=== PATIENT | male | born 1940 | race Caucasian/White ===

== ENCOUNTER 2016-07-08 09:36 | Observation (INO) | payer MEDICARE ==
[2016-07-08] MEDS ORDERED: methylPREDNISolone 125 MG* 2 ML VIAL IV ONE (10:06)
[2016-07-08 10:18] LABS: Hematocrit 33 % (42-52); Hemoglobin 10.4 g/dl (14.0-18.0); Mean Corpuscular HGB Conc 32 g/dl (31-36); Mean Corpuscular Hemoglobin 28 pg (27-31); Mean Corpuscular Volume 87 fL (80-94); Mean Platelet Volume 8 um3 (7.4-10.4); Red Blood Count 3.77 10^6/ul (4.0-5.4); Red Cell Distribution Width 17 % (10.5-15)
[2016-07-08] MEDS: Albuterol/Ipratropium NEB.SOL* Albuterol 2.5 MG/Ipratropium 0.5 MG 3 ML INH ONE ×2 (10:21→11:39)
[2016-07-08 10:38] LABS: Urine Bilirubin Negative (Negative); Urine Glucose Negative (Negative); Urine Nitrite Negative (Negative)
[2016-07-08 10:38] LABS: Albumin 3.5 g/dL (3.2-5.2); BUN/Creatinine Ratio 14.7 (8-20); Calcium 8.6 mg/dL (8.6-10.3); EGFR African American 99.9 (>60); EGFR Non-African American 77.7 (>60); Globulin 3.2 g/dL (2-4); Potassium 3.6 mmol/L (3.5-5.0); Total Bilirubin 0.6 mg/dL (0.2-1.0); Total Protein 6.7 g/dL (6.4-8.9)
[2016-07-08 10:39] LABS: Troponin I 0.01 ng/mL (<0.04)
--- NOTE | 2016-07-08 11:12 | RAD ---
INDICATION: Short of breath. Wheezing. Pneumonia. CHF. COMPARISON: March 07, 2016 TECHNIQUE: PA and lateral dual-energy views were obtained. FINDINGS: Bones/Soft Tissues: There are no acute bony findings. There is sternotomy/CABG Cardiomediastinal: The cardiomediastinal silhouette is unchanged. There is a presumed prominent right pericardial fat pad. The cardiac silhouette is mildly prominent. There is no interstitial edema on today's examination. Lungs: There are no infiltrates. There are several tiny calcified granulomas. There is mild hyperinflation. Pleura: There are no significant pleural effusions. Other: None IMPRESSION: POSTOPERATIVE CHANGE. NO ACTIVE DISEASE.
[2016-07-08] MEDS ORDERED: Furosemide IV* 10 MG/ML VIAL (40 MG) IV SLOW PU ONE (11:31)
[2016-07-08] MEDS ORDERED: Albuterol/Ipratropium NEB.SOL* Albuterol 2.5 MG/Ipratropium 0.5 MG 3 ML ONE (11:37)
[2016-07-08] MEDS ORDERED: Acetaminophen TAB* 325 MG PO PRN (11:39)
[2016-07-08] MEDS ORDERED: Ondansetron INJ* 2 MG/ML VIAL IV PRN (11:39)
--- NOTE | 2016-07-08 11:53 | ED ---
Sha Venegas Adam, scribed for Keshav Villalta MD on 07/08/16 at 1100 . Shortness of Breath - HPI Summary HPI Summary: Patient is a 75 y/o male who presents to [facility] with SOB since 4 days ago. SOB is exacerbated by exertion, but worsened this morning. He also reports some dizziness since 3 weeks. He confirms mild coughing and wheezing, but denies chest pain, fever, chills, nausea, rhinorrhea, or congestion. His notes he had mild edema in the lower extremities yesterday. He states he has recently had decreased urine and low blood counts. He is on blood thinners including ASA. He confirms receiving a flu shot this past year. Pt has a PMHx of CHF and regularly sleeps on 2 pillows. He is on 2 liters of Oxygen at home only at night. Pt also has COPD and Type 2 DM. PSHx of CABG x 3 twenty years ago. SHx: He is a former smoker, but denies drinking. He also denies any FHx of CAD, but notes father had CA and mother had emphysema. - History of Current Complaint Chief Complaint: EDShortnessOfBreath Time Seen by Provider: 07/08/16 09:52 Hx Obtained From: Patient, Family/Orientor - Onset/Duration: Gradual Onset, Lasting Days Current Severity: Moderate Dyspnea At: Exertion Aggrevating Factors: Movement - Ambulation. Alleviating Factors: Nothing Associated Signs & Symptoms: Cough (Nonproductive), Wheezing, Dizzy, Edema - Allergy/Home Medications Allergies/Adverse Reactions: Allergies Allergy/AdvReac Type Severity Reaction Status Date / Time No Known Allergies Allergy Verified 02/23/16 09:35 PMH/Surg Hx/FS Hx/Imm Hx Endocrine/Hematology History: Reports: Hx Diabetes Cardiovascular History: Reports: Hx Hypertension, Other Cardiovascular Problems/ Disorders - CARDIAC BYPASS [place] Denies: Hx Pacemaker/ICD Respiratory History: Reports: Hx Asthma, Hx Chronic Obstructive Pulmonary Disease (COPD) Comment Only: Other Respiratory Problems/Disorders - LIMITED HX DUE TO PT MEMORY Musculoskeletal History: Reports: Hx Arthritis Sensory History: Reports: Hx Cataracts - HAD SURGERY, Hx Contacts or Glasses - FOR READING Denies: Hx Hearing Aid - VERY HARD OF HEARING Opthamlomology History: Reports: Hx Cataracts - HAD SURGERY, Hx Contacts or Glasses - FOR READING Neurological History: Reports: Hx Dementia - Surgical History Surgery Procedure, Year, and Place: CATARACT SURGERY TO BOTH EYES WITH LENS IMPLANTS - [place]. CARDIAC BYPASS - [place]. APPENDECTOMY Hx Anesthesia Reactions: No Infectious Disease History: Yes Infectious Disease History: Denies: Traveled Outside the [place] in Last 30 Days - Family History Known Family History: Positive: Respiratory Disease - Mother had emphysema. , Other - Father had cancer. Negative: Cardiac Disease Family History: No FHx anesthesia reaction - Social History Occupation: Retired Lives: With Family - . Alcohol Use: None Substance Use Type: Reports: None Hx Tobacco Use: Yes Smoking Status (MU): Former Smoker Review of Systems Negative: Fever, Chills Negative: Nasal Discharge Negative: Chest Pain Positive: Shortness Of Breath, Cough - Mild. Mild wheezing, as well. Negative: Nausea Positive: Edema - Lower extremities. All Other Systems Reviewed And Are Negative: Yes Physical Exam - Summary Physical Exam Summary: The patient is well-nourished in no acute distress and in no acute pain. The skin is warm and dry and skin color reflects adequate perfusion. Good skin turgor. HEENT: The head is normocephalic and atraumatic. The pupils are equal and reactive. The conjunctivae are clear and without drainage. Nares are patent and without drainage. Mouth reveals dry mucous membranes. The external ears are intact. The ear canals are patent and without drainage. The tympanic membranes are intact. Neck is supple with full range of motion and non-tender. There are no carotid bruits. There is no neck vein distension. Respiratory: No reproducible tenderness on chest wall. Decreased breath sounds throughout. Rales in left base. No wheezing or rhonchi. Cardiovascular: Hear is regular rate and rhythm. There is no murmur or rub auscultated. Pitting edema lower extremities and ankles. Pulses are symmetrical and equal. Abdomen: The abdomen is soft and non-tender. Musculoskeletal: Less than 2 second capillary refill. Neurological: Patient is alert and oriented to person, place and time. Psychiatric: The patient has an appropriate affect and does not exhibit any anxiety or depression. Triage Information Reviewed: Yes Vital Signs On Initial Exam: Initial Vitals Temp Pulse Resp BP Pulse Ox 97.4 F 80 17 143/83 100 07/08/16 09:37 07/08/16 09:37 07/08/16 09:37 07/08/16 09:37 07/08/16 09:37 Vital Signs Reviewed: Yes Diagnostics - Vital Signs Vital Signs Temp Pulse Resp BP Pulse Ox 07/08/16 09:37 97.4 F 80 17 143/83 100 - Laboratory Lab Results: Lab Results 07/08/16 07/08/16 07/08/16 Range/Units 10:00 10:00 10:00 WBC 8.0 (3.5-10.8) 10^3/ul RBC 3.77 L (4.0-5.4) 10^6/ul Hgb 10.4 L (14.0-18.0) g/dl Hct 33 L (42-52) % MCV 87 (80-94) fL MCH 28 (27-31) pg MCHC 32 (31-36) g/dl RDW 17 H (10.5-15) % Plt Count 206 (150-450) 10^3/ul MPV 8 (7.4-10.4) um3 Neut % (Auto) 69.0 (38-83) % Lymph % (Auto) 20.6 L (25-47) % [place] % (Auto) 8.1 (1-9) % Eos % (Auto) 1.6 (0-6) % Baso % (Auto) 0.7 (0-2) % Absolute Neuts (auto) 5.6 (1.5-7.7) 10^3/ul Absolute Lymphs (auto) 1.7 (1.0-4.8) 10^3/ul Absolute Monos (auto) 0.6 (0-0.8) 10^3/ul Absolute Eos (auto) 0.1 (0-0.6) 10^3/ul Absolute Basos (auto) 0.1 (0-0.2) 10^3/ul Absolute Nucleated RBC 0 10^3/ul Nucleated RBC % 0 INR (Anticoag Therapy) (0.89-1.11) Sodium 137 (133-145) mmol/L Potassium 3.6 (3.5-5.0) mmol/L Chloride 107 (101-111) mmol/L Carbon Dioxide 24 (22-32) mmol/L Anion Gap 6 (2-11) mmol/L BUN 14 (6-24) mg/dL Creatinine 0.95 (0.67-1.17) mg/dL Est GFR ( Amer) 99.9 (>60) Est GFR (Non-Af Amer) 77.7 (>60) BUN/Creatinine Ratio 14.7 (8-20) Glucose 123 H (70-100) mg/dL Lactic Acid 1.4 (0.5-2.0) mmol/L Calcium 8.6 (8.6-10.3) mg/dL Total Bilirubin 0.60 (0.2-1.0) mg/dL AST 12 L (13-39) U/L ALT 7 (7-52) U/L Alkaline Phosphatase 75 (34-104) U/L Troponin I 0.01 (<0.04) ng/mL B-Natriuretic Peptide ( - 100) pg/mL Total Protein 6.7 (6.4-8.9) g/dL Albumin 3.5 (3.2-5.2) g/dL Globulin 3.2 (2-4) g/dL Albumin/Globulin Ratio 1.1 (1-3) Urine Color Urine Appearance Urine pH (5-9) Ur Specific [place] (1.010-1.030) Urine Protein (Negative) Urine Ketones (Negative) Urine Blood (Negative) Urine Nitrate (Negative) Urine Bilirubin (Negative) Urine Urobilinogen (Negative) Ur Leukocyte Esterase (Negative) Urine Glucose (Negative) Influenza A (Rapid) (Negative) Influenza B (Rapid) (Negative) 07/08/16 07/08/16 07/08/16 Range/Units 10:00 10:00 10:15 WBC (3.5-10.8) 10^3/ul RBC (4.0-5.4) 10^6/ul Hgb (14.0-18.0) g/dl Hct (42-52) % MCV (80-94) fL MCH (27-31) pg MCHC (31-36) g/dl RDW (10.5-15) % Plt Count (150-450) 10^3/ul MPV (7.4-10.4) um3 Neut % (Auto) (38-83) % Lymph % (Auto) (25-47) % [place] % (Auto) (1-9) % Eos % (Auto) (0-6) % Baso % (Auto) (0-2) % Absolute Neuts (auto) (1.5-7.7) 10^3/ul Absolute Lymphs (auto) (1.0-4.8) 10^3/ul Absolute Monos (auto) (0-0.8) 10^3/ul Absolute Eos (auto) (0-0.6) 10^3/ul Absolute Basos (auto) (0-0.2) 10^3/ul Absolute Nucleated RBC 10^3/ul Nucleated RBC % INR (Anticoag Therapy) 1.08 (0.89-1.11) Sodium (133-145) mmol/L Potassium (3.5-5.0) mmol/L Chloride (101-111) mmol/L Carbon Dioxide (22-32) mmol/L Anion Gap (2-11) mmol/L BUN (6-24) mg/dL Creatinine (0.67-1.17) mg/dL Est GFR ( Amer) (>60) Est GFR (Non-Af Amer) (>60) BUN/Creatinine Ratio (8-20) Glucose (70-100) mg/dL Lactic Acid (0.5-2.0) mmol/L Calcium (8.6-10.3) mg/dL Total Bilirubin (0.2-1.0) mg/dL AST (13-39) U/L ALT (7-52) U/L Alkaline Phosphatase (34-104) U/L Troponin I (<0.04) ng/mL B-Natriuretic Peptide 480 H ( - 100) pg/mL Total Protein (6.4-8.9) g/dL Albumin (3.2-5.2) g/dL Globulin (2-4) g/dL Albumin/Globulin Ratio (1-3) Urine Color [place] Urine Appearance Cloudy Urine pH 6.0 (5-9) Ur Specific [place] 1.009 L (1.010-1.030) Urine Protein Negative (Negative) Urine Ketones Negative (Negative) Urine Blood Negative (Negative) Urine Nitrate Negative (Negative) Urine Bilirubin Negative (Negative) Urine Urobilinogen Negative (Negative) Ur Leukocyte Esterase Negative (Negative) Urine Glucose Negative (Negative) Influenza A (Rapid) (Negative) Influenza B (Rapid) (Negative) 07/08/16 Range/Units 10:17 WBC (3.5-10.8) 10^3/ul RBC (4.0-5.4) 10^6/ul Hgb (14.0-18.0) g/dl Hct (42-52) % MCV (80-94) fL MCH (27-31) pg MCHC (31-36) g/dl RDW (10.5-15) % Plt Count (150-450) 10^3/ul MPV (7.4-10.4) um3 Neut % (Auto) (38-83) % Lymph % (Auto) (25-47) % [place] % (Auto) (1-9) % Eos % (Auto) (0-6) % Baso % (Auto) (0-2) % Absolute Neuts (auto) (1.5-7.7) 10^3/ul Absolute Lymphs (auto) (1.0-4.8) 10^3/ul Absolute Monos (auto) (0-0.8) 10^3/ul Absolute Eos (auto) (0-0.6) 10^3/ul Absolute Basos (auto) (0-0.2) 10^3/ul Absolute Nucleated RBC 10^3/ul Nucleated RBC % INR (Anticoag Therapy) (0.89-1.11) Sodium (133-145) mmol/L Potassium (3.5-5.0) mmol/L Chloride (101-111) mmol/L Carbon Dioxide (22-32) mmol/L Anion Gap (2-11) mmol/L BUN (6-24) mg/dL Creatinine (0.67-1.17) mg/dL Est GFR ( Amer) (>60) Est GFR (Non-Af Amer) (>60) BUN/Creatinine Ratio (8-20) Glucose (70-100) mg/dL Lactic Acid (0.5-2.0) mmol/L Calcium (8.6-10.3) mg/dL Total Bilirubin (0.2-1.0) mg/dL AST (13-39) U/L ALT (7-52) U/L Alkaline Phosphatase (34-104) U/L Troponin I (<0.04) ng/mL B-Natriuretic Peptide ( - 100) pg/mL Total Protein (6.4-8.9) g/dL Albumin (3.2-5.2) g/dL Globulin (2-4) g/dL Albumin/Globulin Ratio (1-3) Urine Color Urine Appearance Urine pH (5-9) Ur Specific [place] (1.010-1.030) Urine Protein (Negative) Urine Ketones (Negative) Urine Blood (Negative) Urine Nitrate (Negative) Urine Bilirubin (Negative) Urine Urobilinogen (Negative) Ur Leukocyte Esterase (Negative) Urine Glucose (Negative) Influenza A (Rapid) Negative (Negative) Influenza B (Rapid) Negative (Negative) Result Diagrams: 07/08/16 10:00 07/08/16 10:00 Lab Statement: Any lab studies that have been ordered have been reviewed, and results considered in the medical decision making process. - Radiology CHEST Radiology Interpretation Completed By: Radiologist - IMPRESSION: POSTOPERATIVE CHANGE. NO ACTIVE DISEASE. - EKG 0947 Cardiac Rate: NL - 79 BPM EKG Rhythm: Sinus Rhythm ST Segment: Non-Specific - in V2, V3, and V4. EKG Interpretation: Normal axis, No STEMI, Poor R Wave Progression - Additional Comments Diagnostic Additional Comments: Influenza A (rapid) = negative Influenza B (rapid) = negative Troponin = 0.01 Re-Evaluation - Re-Evaluation First Eval Re-Evaluation Time: 11:20 - Occasional wheezes, but moving a lot more air. Change: Improved Course/Dx - Course Course Of Treatment: 1126 - Pt will be walked around the ED and his O2 SAT will be evaluated. O2 SAT started at 93%, decreased to 88%, and then to 84% upon returning to the room wherein he experienced SOB, as well. - Diagnoses Differential Diagnosis/HQI/PQRI: Positive: Bronchitis, CHF, [place], Pneumonia, Other - influenza Provider Diagnoses: Acute dyspnea, History of COPD, History of coronary artery disease, History of anemia, CHF (congestive heart failure) - Physician Notifications Discussed Care of Patient With: (Louisa) @ 1137. Pt will be admitted. Discharge - Discharge Plan Condition: Stable Disposition: ADMITTED TO [facility] Referrals: Дмитрий Webber MD [Primary Care Provider] - The documentation as recorded by the Sha ceron Adam accurately reflects the service I personally performed and the decisions made by , Keshav Villalta MD.
[2016-07-08] MEDS: Heparin VIAL(*) 5000 UNITS/ML VIAL (FIVE THOUSAND) SUBCUT SCH ×2 (14:16→20:33)
[2016-07-08] MEDS ORDERED: Albuterol 2.5 MG/3 ML NEB.SOL* (0.083%) INH PRN (15:34)
[2016-07-08] MEDS ORDERED: Dextrose 50% Syringe 50 ML* 25 GM/50 ML SYRINGE IV PUSH PRN (15:39)
[2016-07-08] MEDS: Insulin LISPRO* 1 UNITS UNIT SUBCUT SCH (17:09)
[2016-07-08] MEDS: Mometasone/Formoter 200/5 MDI INH SCH (19:45)
--- NOTE | 2016-07-08 20:59 | HP ---
HISTORY AND PHYSICAL: DATE OF ADMISSION: 07/08/16 PRIMARY CARE PROVIDER: Dr. Villagran. ATTENDING PHYSICIAN WHILE IN THE HOSPITAL: Dr. Ranjit Jasso * (report dictated by Jacqui Flores NP) CHIEF COMPLAINT: Shortness of breath. HISTORY OF PRESENT ILLNESS: Mr. Zarate is a 75-year-old male patient, he has a history of coronary artery disease, COPD, diet-controlled diabetes, hypertension , IA, hyperlipidemia, CHF, his last EF was 45% to 50%, and BPH. He comes in today stating that over the last couple of weeks, he has been having reports of dizziness. He has been following closely with Dr. Villagran. It was felt that this may be orthostasis and the patient's Lasix doses had been gradually reduced. The patient comes in today; however, says over the last 4 to 5 days, he has had progressive worsening shortness of breath. His states that he has had worsening leg swelling. There have been no reports of weight gain. The patient states that there has been no worsening shortness of breath from lying flat and he denies having any shortness of breath at rest. He does state that he does have dyspnea on exertion. He denies having any chest pain. He denies having any nausea or vomiting. There have been no URI symptoms. There was concern though because his breathing was not getting any better, he has essentially been of his Lasix according to the over the last week, and because of the swelling and breathing, she was concerned. He came into the ER, there was concern for possible CHF versus COPD exacerbation and the hospitalist service was asked to evaluate for admission. PAST MEDICAL HISTORY: Significant for: 1. CAD. 2. COPD. 3. Diabetes. 4. Hypertension. 5. IA. 6. Hyperlipidemia. 7. CHF, last EF of 45% to 50%. 8. BPH. PAST SURGICAL HISTORY: He has had: 1. CABG. 2. Appendectomy. 3. Right total hip arthroplasty. HOME MEDICATIONS: Include: 1. Flomax 0.4 mg daily. 2. Zocor 40 mg daily. 3. ProAir 1 puff inhaled q.4 hours. 4. Lasix, he was on actually 20 mg daily. 5. Proscar 5 mg daily. 6. Aspirin 81 mg daily. 7. Albuterol 2.5 one neb inhaled every 4 hours as needed. 8. Tylenol 650 mg p.o. every 6 hours. ALLERGIES TO MEDICATIONS: Include no known drug allergies. FAMILY HISTORY: Mother had history of COPD. SOCIAL HISTORY: He is a former smoker. He does not drink. Surrogate decision maker is his . REVIEW OF SYSTEMS: There is no documented fever. He denied having any significant weight change. There was no double vision. There was no ear discharge. There was no rhinorrhea. No sore throat. No thyroid enlargement. Denies having any chest pain. There was no orthopnea or dyspnea on exertion. There is no abdominal pain. There is no dysuria, no frequency. No loss of consciousness. No pruritus and no skin ulcerations. Review of 14 systems completed, all others negative. PHYSICAL EXAMINATION GENERAL: At this time, Mr. Zarate is a 75-year-old male patient. He appears well nourished, well developed. He is sitting in the hospital bed. He does not appear to be in any acute distress. VITAL SIGNS: Reveal blood pressure 144/73, pulse is 80, respirations 18, O2 sat 100%, temperature 97.4. HEENT: Head: Atraumatic, normocephalic. Eyes: EOMs are intact. Sclerae anicteric and not pale. Throat: Oral mucosa appears to be moist. No oropharyngeal erythema. NECK: Supple. No JVD. LUNGS: He did have a wheeze noted in the left base. He had equal diaphragmatic expansion. HEART: Sounds S1, S2. Regular rate and rhythm. No murmurs, rubs, or gallops. ABDOMEN: Soft, flat, nontender. Bowel sounds present. EXTREMITIES: Pulses 2+ throughout. He is able to move all 4 extremities with 5 /5 strength. He had mild edema bilaterally. NEUROLOGIC: He is awake, he is alert, he is oriented x3. Tongue midline. Cyber Security Manager were equal. No gross focal deficits. SKIN: Intact. DIAGNOSTIC STUDIES/LAB DATA: Revealed WBC of 8.0, RBC of 3.77, hemoglobin of 10.4, hematocrit of 33, platelet count 206. INR was 1.08. Sodium was 137, potassium 3.6, chloride of 107, bicarb 24, BUN 14, creatinine 0.95, glucose 123 , lactate 1.4, calcium 8.6. Total bili 0.6, AST 12, ALT 7, alk phos 75. Troponin 0.01. Albumin 3.5. Urine was obtained, negative. Serology for flu was negative. He had a chest x-ray obtained today, under my review, I did not appreciate any acute infiltrates. Radiology read it as postoperative change. No active disease. He had an EKG obtained today as well which revealed a normal sinus rhythm with a rate of 79, no ST elevations or T-wave inversions were noted. It was reviewed to his previous EKG, it is similar. Old medical records were reviewed. He did have an echo in February of this year which revealed EF of 55% to 60%. Old medical records reviewed. ASSESSMENT AND PLAN: Mr. Zarate is 75-year-old male patient coming into the ER today with complaints of shortness of breath on evaluation. There was concern for possible congestive heart failure or chronic obstructive pulmonary disease. He will be admitted under observation status for: 1. Shortness of breath: I suspect this is probably related to him being off Lasix for the last couple of weeks and he has been a little volume overloaded. I am going to go ahead and put him back on 20 mg daily. He got 40 IV Lasix in the ER. He said he is feeling much better now. He has been urinating. His lungs, there is no wheeze with the exception in the left base. There are no crackles. I do think though aggressive pulmonary toileting with flutter valve and incentive spirometry is appropriate and I will continue to follow. 2. Chronic obstructive pulmonary disease: I am going to put him on b.i.d. Dulera and p.r.n. nebs. I do not think he needs steroids at this point or standing nebs. We will continue to follow. 3. Diabetes: It is diet controlled. We will put him on lispro sliding scale. 4. Hypertension: We will continue meds as prescribed. 5. History of myocardial infarction: Continue with his current medications. He is on aspirin and statin, we will continue these. I would be hesitant to start a beta viral because of his chronic obstructive pulmonary disease. 6. Hyperlipidemia: Continue statin therapy. 7. History of congestive heart failure: Again, continue meds as prescribed. Appears to be in a mild amount of failure currently. We will check weights daily and continue on telemetry. 8. BPH: Continue meds as prescribed. 9. Dizziness. Again, he is on Proscar and Flomax, both of which can contribute to dizziness. I would consider may be stopping one of these, but again I will defer this to his primary. 10. DVT prophylaxis: I will put him on heparin subcu. 11. Code status: Full code. 12. Fluids, electrolytes, and nutrition: He can have a heart-healthy diet. TIME SPENT: On the admission was 60 minutes, greater than half the time was spent [id number] with the patient obtaining my history and physical, and the other half time was spent going over the plan of care with patient and implementing plan of care. I did discuss the plan of care with my attending, Dr. Jasso; he is in agreement. JACQUI FLORES NP CC: Dr. Villagran * [id number]/CPS #: [id number] MTDD
[2016-07-08] MEDS ORDERED: Atorvastatin* 20 MG TAB PO SCH (21:00)
[2016-07-09] MEDS: Heparin VIAL(*) 5000 UNITS/ML VIAL (FIVE THOUSAND) SUBCUT SCH ×2 (05:44→13:06)
[2016-07-09 06:01] LABS: Hematocrit 30 % (42-52); Hemoglobin 9.6 g/dl (14.0-18.0); Mean Corpuscular HGB Conc 32 g/dl (31-36); Mean Corpuscular Hemoglobin 28 pg (27-31); Mean Corpuscular Volume 87 fL (80-94); Mean Platelet Volume 8 um3 (7.4-10.4); Red Blood Count 3.44 10^6/ul (4.0-5.4); Red Cell Distribution Width 17 % (10.5-15); White Blood Count 9.2 10^3/ul (3.5-10.8)
[2016-07-09 06:12] LABS: Calcium 8.9 mg/dL (8.6-10.3); EGFR African American 113.6 (>60); EGFR Non-African American 88.4 (>60); Potassium 3.7 mmol/L (3.5-5.0)
[2016-07-09] MEDS ORDERED: Aspirin EC Low Dose* 81 MG TAB.EC PO SCH (09:00)
[2016-07-09] MEDS ORDERED: Tamsulosin CAP* 0.4 MG PO SCH (09:00)
[2016-07-09] MEDS ORDERED: Furosemide TAB* 40 MG PO SCH ×2 (09:00)
[2016-07-09] MEDS ORDERED: Potassium Chlor TAB* 20 MEQ TAB.ER PO SCH (09:00)
[2016-07-09] MEDS ORDERED: Finasteride TAB* 5 MG PO SCH (09:00)
[2016-07-09] MEDS: Insulin LISPRO* 1 UNITS UNIT SUBCUT SCH ×2 (09:14→13:06)
[2016-07-09] MEDS: Mometasone/Formoter 200/5 MDI INH SCH (10:08)
--- NOTE | 2016-07-09 16:03 | PN ---
Subjective Date of Service: 07/09/16 Interval History: Pt is feeling well. He wants to go home. He feels his breathing is better. His LE edema is better as well. He has not been up and walking yet to see if he is more comfortable now than previous however. Objective Active Medications: Acetaminophen (Tylenol Tab*) 650 mg PO Q4H PRN PRN Reason: FEVER/PAIN Albuterol (Ventolin 2.5 Mg/3 Ml Neb.Grace*) 2.5 mg INH Q4H PRN PRN Reason: SOB/WHEEZING Aspirin (Aspirin Ec Low Dose*) 81 mg PO DAILY [facility] Last Admin: 07/09/16 09:23 Dose: 81 mg Atorvastatin Calcium (Lipitor*) 20 mg PO BEDTIME [facility] Last Admin: 07/08/16 20:32 Dose: 20 mg Dextrose (D50w Syringe 50 Ml*) 12.5 gm IV PUSH .FOR FS < 60 - SS PRN PRN Reason: FS < 60 Finasteride (Proscar Tab*) 5 mg PO DAILY [facility] Last Admin: 07/09/16 09:21 Dose: 5 mg Furosemide (Lasix Tab*) 20 mg PO QAM [facility] Last Admin: 07/09/16 09:23 Dose: 20 mg Heparin Sodium (Porcine) (Heparin Vial(*)) 5,000 units SUBCUT Q8HR [facility] Last Admin: 07/09/16 13:06 Dose: 5,000 units Insulin Human Lispro (Humalog*) 0 units SUBCUT AC [facility] PRN Reason: Protocol Last Admin: 07/09/16 13:06 Dose: 1 units Mometasone Furoate/Formoterol Fumar (Dulera 200/5 Mdi*) 2 puff INH BID [facility] Last Admin: 07/09/16 10:08 Dose: 2 puff Ondansetron HCl (Zofran Inj*) 4 mg IV Q4H PRN PRN Reason: NAUSEA/VOMITING Potassium Chloride (Klor Con Er Tab*) 40 meq PO DAILY [facility] Last Admin: 07/09/16 09:22 Dose: 40 meq Tamsulosin HCl (Flomax Cap*) 0.4 mg PO DAILY [facility] Last Admin: 07/09/16 09:22 Dose: 0.4 mg Vital Signs 07/08/16 07/08/16 07/08/16 16:00 16:04 16:21 Temperature 97.9 F Pulse Rate 96 Respiratory 14 Rate Blood Pressure 114/69 (mmHg) O2 Sat by Pulse 98 98 94 Oximetry 07/08/16 07/08/16 07/08/16 19:42 20:00 23:22 Temperature 98.0 F 98.1 F Pulse Rate 83 85 74 Respiratory 16 14 20 Rate Blood Pressure 142/81 127/61 (mmHg) O2 Sat by Pulse 100 98 97 Oximetry 07/08/16 07/09/16 07/09/16 23:51 03:15 07:31 Temperature 97.9 F Pulse Rate 86 Respiratory 20 18 Rate Blood Pressure 135/74 (mmHg) O2 Sat by Pulse 97 96 Oximetry 07/09/16 07/09/16 07/09/16 07:55 08:00 10:16 Temperature 98.1 F Pulse Rate 81 77 Respiratory 16 16 Rate Blood Pressure 146/78 (mmHg) O2 Sat by Pulse 99 94 93 Oximetry 07/09/16 07/09/16 10:51 11:47 Temperature 98.8 F Pulse Rate 73 Respiratory 16 Rate Blood Pressure 128/66 (mmHg) O2 Sat by Pulse 93 94 Oximetry Oxygen Devices in Use Now: None Appearance: Elderly male sitting up in bed, NAD Eyes: No Scleral Icterus Ears/Nose/Mouth/Throat: Mucous Membranes Moist Respiratory: Symmetrical Chest Expansion and Respiratory Effort, Clear to Auscultation - few bibasilar crackles Cardiovascular: NL Sounds; No Murmurs; No JVD, RRR, - - trace LE edema Abdominal: NL Sounds; No Tenderness; No Distention Extremities: No Clubbing, Cyanosis Skin: No Rash or Ulcers, No Nodules or Sclerosis Neurological: Alert and Oriented x 3, - - [place] Result Diagrams: 07/09/16 04:58 07/09/16 04:58 Additional Lab and Data: Lab Results 07/08/16 07/08/16 07/08/16 Range/Units 10:00 10:00 10:00 WBC 8.0 (3.5-10.8) 10^3/ul RBC 3.77 L (4.0-5.4) 10^6/ul Hgb 10.4 L (14.0-18.0) g/dl Hct 33 L (42-52) % MCV 87 (80-94) fL MCH 28 (27-31) pg MCHC 32 (31-36) g/dl RDW 17 H (10.5-15) % Plt Count 206 (150-450) 10^3/ul MPV 8 (7.4-10.4) um3 Neut % (Auto) 69.0 (38-83) % Lymph % (Auto) 20.6 L (25-47) % Wake % (Auto) 8.1 (1-9) % Eos % (Auto) 1.6 (0-6) % Baso % (Auto) 0.7 (0-2) % Absolute Neuts (auto) 5.6 (1.5-7.7) 10^3/ul Absolute Lymphs (auto) 1.7 (1.0-4.8) 10^3/ul Absolute Monos (auto) 0.6 (0-0.8) 10^3/ul Absolute Eos (auto) 0.1 (0-0.6) 10^3/ul Absolute Basos (auto) 0.1 (0-0.2) 10^3/ul Absolute Nucleated RBC 0 10^3/ul Nucleated RBC % 0 INR (Anticoag Therapy) (0.89-1.11) Sodium 137 (133-145) mmol/L Potassium 3.6 (3.5-5.0) mmol/L Chloride 107 (101-111) mmol/L Carbon Dioxide 24 (22-32) mmol/L Anion Gap 6 (2-11) mmol/L BUN 14 (6-24) mg/dL Creatinine 0.95 (0.67-1.17) mg/dL Est GFR ( Amer) 99.9 (>60) Est GFR (Non-Af Amer) 77.7 (>60) BUN/Creatinine Ratio 14.7 (8-20) Glucose 123 H (70-100) mg/dL Lactic Acid 1.4 (0.5-2.0) mmol/L Calcium 8.6 (8.6-10.3) mg/dL Total Bilirubin 0.60 (0.2-1.0) mg/dL AST 12 L (13-39) U/L ALT 7 (7-52) U/L Alkaline Phosphatase 75 (34-104) U/L Troponin I 0.01 (<0.04) ng/mL B-Natriuretic Peptide ( - 100) pg/mL Total Protein 6.7 (6.4-8.9) g/dL Albumin 3.5 (3.2-5.2) g/dL Globulin 3.2 (2-4) g/dL Albumin/Globulin Ratio 1.1 (1-3) Urine Color Urine Appearance Urine pH (5-9) Ur Specific [place] (1.010-1.030) Urine Protein (Negative) Urine Ketones (Negative) Urine Blood (Negative) Urine Nitrate (Negative) Urine Bilirubin (Negative) Urine Urobilinogen (Negative) Ur Leukocyte Esterase (Negative) Urine Glucose (Negative) Influenza A (Rapid) (Negative) Influenza B (Rapid) (Negative) 07/08/16 07/08/16 07/08/16 Range/Units 10:00 10:00 10:15 WBC (3.5-10.8) 10^3/ul RBC (4.0-5.4) 10^6/ul Hgb (14.0-18.0) g/dl Hct (42-52) % MCV (80-94) fL MCH (27-31) pg MCHC (31-36) g/dl RDW (10.5-15) % Plt Count (150-450) 10^3/ul MPV (7.4-10.4) um3 Neut % (Auto) (38-83) % Lymph % (Auto) (25-47) % Wake % (Auto) (1-9) % Eos % (Auto) (0-6) % Baso % (Auto) (0-2) % Absolute Neuts (auto) (1.5-7.7) 10^3/ul Absolute Lymphs (auto) (1.0-4.8) 10^3/ul Absolute Monos (auto) (0-0.8) 10^3/ul Absolute Eos (auto) (0-0.6) 10^3/ul Absolute Basos (auto) (0-0.2) 10^3/ul Absolute Nucleated RBC 10^3/ul Nucleated RBC % INR (Anticoag Therapy) 1.08 (0.89-1.11) Sodium (133-145) mmol/L Potassium (3.5-5.0) mmol/L Chloride (101-111) mmol/L Carbon Dioxide (22-32) mmol/L Anion Gap (2-11) mmol/L BUN (6-24) mg/dL Creatinine (0.67-1.17) mg/dL Est GFR ( Amer) (>60) Est GFR (Non-Af Amer) (>60) BUN/Creatinine Ratio (8-20) Glucose (70-100) mg/dL Lactic Acid (0.5-2.0) mmol/L Calcium (8.6-10.3) mg/dL Total Bilirubin (0.2-1.0) mg/dL AST (13-39) U/L ALT (7-52) U/L Alkaline Phosphatase (34-104) U/L Troponin I (<0.04) ng/mL B-Natriuretic Peptide 480 H ( - 100) pg/mL Total Protein (6.4-8.9) g/dL Albumin (3.2-5.2) g/dL Globulin (2-4) g/dL Albumin/Globulin Ratio (1-3) Urine Color [place] Urine Appearance Cloudy Urine pH 6.0 (5-9) Ur Specific [place] 1.009 L (1.010-1.030) Urine Protein Negative (Negative) Urine Ketones Negative (Negative) Urine Blood Negative (Negative) Urine Nitrate Negative (Negative) Urine Bilirubin Negative (Negative) Urine Urobilinogen Negative (Negative) Ur Leukocyte Esterase Negative (Negative) Urine Glucose Negative (Negative) Influenza A (Rapid) (Negative) Influenza B (Rapid) (Negative) 07/08/16 Range/Units 10:17 WBC (3.5-10.8) 10^3/ul RBC (4.0-5.4) 10^6/ul Hgb (14.0-18.0) g/dl Hct (42-52) % MCV (80-94) fL MCH (27-31) pg MCHC (31-36) g/dl RDW (10.5-15) % Plt Count (150-450) 10^3/ul MPV (7.4-10.4) um3 Neut % (Auto) (38-83) % Lymph % (Auto) (25-47) % Wake % (Auto) (1-9) % Eos % (Auto) (0-6) % Baso % (Auto) (0-2) % Absolute Neuts (auto) (1.5-7.7) 10^3/ul Absolute Lymphs (auto) (1.0-4.8) 10^3/ul Absolute Monos (auto) (0-0.8) 10^3/ul Absolute Eos (auto) (0-0.6) 10^3/ul Absolute Basos (auto) (0-0.2) 10^3/ul Absolute Nucleated RBC 10^3/ul Nucleated RBC % INR (Anticoag Therapy) (0.89-1.11) Sodium (133-145) mmol/L Potassium (3.5-5.0) mmol/L Chloride (101-111) mmol/L Carbon Dioxide (22-32) mmol/L Anion Gap (2-11) mmol/L BUN (6-24) mg/dL Creatinine (0.67-1.17) mg/dL Est GFR ( Amer) (>60) Est GFR (Non-Af Amer) (>60) BUN/Creatinine Ratio (8-20) Glucose (70-100) mg/dL Lactic Acid (0.5-2.0) mmol/L Calcium (8.6-10.3) mg/dL Total Bilirubin (0.2-1.0) mg/dL AST (13-39) U/L ALT (7-52) U/L Alkaline Phosphatase (34-104) U/L Troponin I (<0.04) ng/mL B-Natriuretic Peptide ( - 100) pg/mL Total Protein (6.4-8.9) g/dL Albumin (3.2-5.2) g/dL Globulin (2-4) g/dL Albumin/Globulin Ratio (1-3) Urine Color Urine Appearance Urine pH (5-9) Ur Specific [place] (1.010-1.030) Urine Protein (Negative) Urine Ketones (Negative) Urine Blood (Negative) Urine Nitrate (Negative) Urine Bilirubin (Negative) Urine Urobilinogen (Negative) Ur Leukocyte Esterase (Negative) Urine Glucose (Negative) Influenza A (Rapid) Negative (Negative) Influenza B (Rapid) Negative (Negative) Microbiology and Other Data: Microbiology 07/09/16 10:40 Legionella Urinary Antigen - Final Urine Negative Legionella Streptococcus pneumoniae Ag Screen - Final Negative S. pneumo Antigen Assess/Plan/Problems-Billing Mr Zarate is a 75 yo M with a h/o diastolic CHF who was weaned off his lasix for c/o dizziness and orthostasis, CAD, COPD, HTN, type II DM and BPH who presented to the ER with c/o SOB and LE edema and was admitted for decompensated diastolic CHF. - Patient Problems (1) Diastolic CHF, acute Current Visit: Yes Status: Acute Code(s): I50.31 - ACUTE DIASTOLIC ( CONGESTIVE) HEART FAILURE SNOMED Code(s): 826433452 Comment: Much improved after 1 IV dose of lasix and resuming oral lasix 20mg daily. Will continue the patient on lasix 20mg/day. He was taken off the lasix due to dizziness and orthostasis but coming off the lasix did not improve his symptoms. He is feeling much improved and ready for d/c home. (2) HTN (hypertension) Current Visit: Yes Status: Acute Code(s): I10 - ESSENTIAL (PRIMARY) HYPERTENSION SNOMED Code(s): 89717492 Comment: BP is under good control. Continue current medication regimen. (3) Type II diabetes mellitus Current Visit: Yes Status: Acute Comment: Sugars are under good control without any medications. (4) COPD (chronic obstructive pulmonary disease) Current Visit: Yes Status: Acute Code(s): J44.9 - CHRONIC OBSTRUCTIVE PULMONARY DISEASE, UNSPECIFIED SNOMED Code(s): 82326420 Comment: No signs of exacerbation. Continue prn O2. (5) DVT prophylaxis Current Visit: Yes Status: Acute Code(s): OWM2388 - SNOMED Code(s): 367757469 Comment: SQ heparin (6) Full code status Current Visit: Yes Status: Acute Code(s): Z78.9 - OTHER SPECIFIED HEALTH STATUS SNOMED Code(s): 225922972
[2016-07-09 16:28] VITALS: BP 138/82
--- NOTE | 2016-07-10 01:38 | DS ---
DISCHARGE SUMMARY: DATE OF ADMISSION: 07/08/16 DATE OF DISCHARGE: 07/09/16 PRIMARY CARE PROVIDER: Dr. Villagran. PRINCIPAL DIAGNOSIS: Acute diastolic congestive heart failure. SECONDARY DIAGNOSES: 1. Chronic obstructive pulmonary disease. 2. Type 2 diabetes - diet controlled. 3. Hypertension. 4. Coronary artery disease. 5. Benign prostatic hypertrophy. DISCHARGE MEDICATIONS: 1. Lasix 20 mg p.o. daily (new). 2. Flomax 0.4 mg p.o. daily. 3. Finasteride 5 mg p.o. daily. 4. Aspirin 81 mg p.o. daily. 5. Albuterol 1 neb inhaled q.4 h. p.r.n. shortness of breath. 6. Tylenol 650 mg p.o. q.6 h. p.r.n. pain. 7. Potassium chloride 40 mEq p.o. daily. 8. Simvastatin 40 mg p.o. q.h.s. 9. ProAir 2 puffs inhaled q.4 h. p.r.n. shortness of breath. HOSPITAL COURSE: Mr. Zarate is a 75-year-old male who presented to the emergency room on 07/08/16 with complaints of shortness of breath. The patient describes having dizziness and being diagnosed as orthostasis as an outpatient over the last several weeks. His Lasix dose has been weaned out and ultimately tapered off. The patient noted that over the 4 to 5 days prior to admission, he had progressive worsening shortness of breath and worsening leg swelling. The patient's noted this to be likely signs of fluid gain and therefore, brought him to the emergency room for evaluation. The patient received IV Lasix in the emergency room and then was begun on Lasix 20 mg p.o. daily. With this, the patient's breathing is much improved and his lower extremity edema has essentially resolved. The patient had an echocardiogram in February 2016 that revealed an EF of 55% to 60%. I suspect the patient's acute diastolic CHF exacerbation that extended secondary to discontinuation of his Lasix. The patient will go back out on Lasix 20 mg p.o. daily. Of note, the patient states that discontinuing the Lasix did not improve his dizziness symptoms. The patient was able to get up and ambulate without any difficulty. O2 saturations were checked with ambulation and did drop to approximately 84% when he was about three-quarters of the way back to his room. The patient was relatively asymptomatic with this. He already has oxygen set up at home and will continue on this. At this point it is felt that the patient is stable for discharge home. FOLLOWUP CONCERNS: The patient is being discharged to home today, 07/09/16. He is to follow up with Dr. Webber in the next 4 to 7 days. ACTIVITY LEVEL: Is as tolerated. DIET: Low salt. CONDITION ON DISCHARGE: Stable. TIME SPENT: Thirty five minutes were spent discharging this patient. CC: Dr. Villagran* [id number]/[facility] #: [id number]
== END 2016-07-09 17:33 | disposition home or self-care (01) ==
LOC: ED 09:36 → MEDTELE 11:39
PROVIDERS: ADMIT Internal Medicine; ATTEND Hospitalist
DX: R06.02 Shortness of breath (principal); J44.9 Chronic obstructive pulmonary disease, unspecified; E11.9 Type 2 diabetes mellitus without complications; I10 Essential (primary) hypertension; I25.2 Old myocardial infarction; E78.5 Hyperlipidemia, unspecified; F03.90 Unspecified dementia, unspecified severity, without behavioral disturbance, psychotic disturbance, mood disturbance, and anxiety; Z79.82 Long term (current) use of aspirin; Z87.891 Personal history of nicotine dependence; Z79.4 Long term (current) use of insulin
CPT/HCPCS: 36415; 71020; 80048; 80053; 81003; 83036; 83605; 83880; 84484; 85025; 85610; 87040; 87502; 87899; 93005; 94640; 94760; 96374; 96375; 99284; A9270-GY; G0378; J1644; J1940; J2930

== ENCOUNTER 2017-02-18 09:47 | Emergency (ER) | payer MEDICARE ==
[2017-02-18] MEDS ORDERED: traMADol TAB* 50 MG PO ONE (11:04)
--- NOTE | 2017-02-18 11:38 | ED ---
Lower Extremity - HPI Summary HPI Summary: Patient presents to the ED with right hip pain which has been worsening x7 days. Right total hip arthroplasty [address] Majano. He notes since the surgery has always had a minimal amount of pain in the lateral hip worse over the incision site from the surgery. The past week, he states he has been feeling as if the hardware was "shifting" and causing increase pain. 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 Patient called Dr. Majano's office this morning who recommended he come to the ED for further imaging. Risks of avascular necrosis and septic joint are evaluated. Denies fevers, sweats, chills, erythema or warmth over the femoral head location or over incision site. He is currently taking Ibuprofen and Tylenol without relief. He has not tried to take any medication. He states he had a reaction to the anesthesia and is concerned with strong pain medications. The pain is worse with movement and better with rest. Worse with adduction of the hip and crossing the legs. He feels the lateral hip is pulling along the muscle structure. The pain is sharp and aching. He is ambulating, but with pain. Denies walker or cane use. - History of Current Complaint Chief Complaint: EDBackInjuryPain Stated Complaint: BACK AND HIP PAIN Time Seen by Provider: 02/18/17 10:28 Hx Obtained From: Patient Mechanism Of Injury: Unknown - previous right hip total arthroplasty Onset of Pain: Days Onset/Duration: Days Severity Initially: Moderate Severity Currently: Moderate Pain Intensity: 3 Pain Scale Used: 0-10 Numeric Timing: Constant Location: Is Discrete @ - right hip without radiation of pain Character Of Pain: Aching Associated Signs And Symptoms: Positive: Negative. Negative: Swelling, Redness , Bruising Aggravating Factor(s): Standing, Ambulation Alleviating Factor(s): Rest Able to Bear Weight: Yes - Risk Factors Gout Risk Factors: Age Over 40, Male Septic Arthritis Risk Factor: Pre-existing Joint Disease, Prosthesis - Allergies/Home Medications Allergies/Adverse Reactions: Allergies Allergy/AdvReac Type Severity Reaction Status Date / Time No Known Allergies Allergy Verified 02/18/17 10:29 PMH/Surg Hx/FS Hx/Imm Hx Previously Healthy: No - see below Endocrine/Hematology History: Reports: Hx Diabetes Cardiovascular History: Reports: Hx Congestive Heart Failure, Hx Hypertension, Other Cardiovascular Problems/Disorders - CARDIAC BYPASS [place] Denies: Hx Pacemaker/ICD Respiratory History: Reports: Hx Asthma, Hx Chronic Obstructive Pulmonary Disease (COPD) Comment Only: Other Respiratory Problems/Disorders - LIMITED HX DUE TO PT MEMORY GI History: Reports: Hx Gastroesophageal Reflux Disease History: Reports: Hx Benign Prostatic Hyperplasia Musculoskeletal History: Reports: Hx Arthritis Sensory History: Reports: Hx Cataracts - HAD SURGERY, Hx Contacts or Glasses - FOR READING Denies: Hx Hearing Aid - VERY HARD OF HEARING Opthamlomology History: Reports: Hx Cataracts - HAD SURGERY, Hx Contacts or Glasses - FOR READING Neurological History: Reports: Hx Dementia, Other Neuro Impairments/Disorders - Delerium following hip replacement Psychiatric History: Reports: Hx Depression - Per pts - Surgical History Surgery Procedure, Year, and Place: CATARACT SURGERY TO BOTH EYES WITH LENS IMPLANTS - [place]. CARDIAC BYPASS - [place]. APPENDECTOMY. RT HIP REPLACEMENT 2016 Hx Anesthesia Reactions: No - Combative delruim follow hip replacement - Immunization History Hx Pertussis Vaccination: No Immunizations Up to Date: Unable to Obtain/Confirm Infectious Disease History: No Infectious Disease History: Denies: Traveled Outside the [place] in Last 30 Days - Family History Known Family History: Positive: Respiratory Disease - Mother had emphysema. , Other - Father had cancer. Negative: Cardiac Disease Family History: No FHx anesthesia reaction - Social History Occupation: Unemployed Lives: With Family Alcohol Use: None Hx Substance Use: No Substance Use Type: Reports: None Hx Tobacco Use: Yes Smoking Status (MU): Former Smoker Review of Systems Constitutional: Negative Negative: Fever, Chills, Fatigue, Skin Diaphoresis ENT: Negative Cardiovascular: Negative Respiratory: Negative Positive: no symptoms reported, see HPI Positive: Arthralgia - right hip pain - most notable over acetabulum and over incision site Skin: Negative Negative: Rash, Bruising Negative: Headache, Weakness, Paresthesia, Numbness All Other Systems Reviewed And Are Negative: Yes Physical Exam Triage Information Reviewed: Yes Vital Signs On Initial Exam: Initial Vitals Temp Pulse Resp BP Pulse Ox 97.0 F 74 16 161/97 98 02/18/17 09:48 02/18/17 09:48 02/18/17 09:48 02/18/17 09:48 02/18/17 09:48 Vital Signs Reviewed: Yes Appearance: Positive: Well-Appearing, Well-Nourished Skin: Positive: Warm, Skin Color Reflects Adequate Perfusion Head/Face: Positive: Normal Head/Face Inspection Eyes: Positive: EOMI, RIKKI, Conjunctiva Clear Neck: Positive: Supple, No Lymphadenopathy Respiratory/Lung Sounds: Positive: Clear to Auscultation, Breath Sounds Present Cardiovascular: Positive: Normal, RRR, Pulses are Symmetrical in both Upper and Lower Extremities Musculoskeletal: Positive: Pain @ - right hip. Negative: Strength/ROM Intact, Eugenio Sign Left, Eugenio Sign Right, Edema Left, Edema Right Neurological: Positive: Sensory/Motor Intact, Alert, Oriented to Person Place, Time, Facial Symmetry, Speech Normal Psychiatric: Positive: Normal, Affect/Mood Appropriate AVPU Assessment: Alert - Jose Coma Scale Coma Scale Total: 15 Diagnostics - Vital Signs Vital Signs Temp Pulse Resp BP Pulse Ox 02/18/17 11:00 68 155/82 97 02/18/17 10:09 73 96 02/18/17 10:06 154/92 02/18/17 09:48 97.0 F 74 16 161/97 98 - Laboratory Lab Statement: Any lab studies that have been ordered have been reviewed, and results considered in the medical decision making process. Lower Extremity Course/Dx - Course Course Of Treatment: Images obtained of the lumbar spine and right hip joint to assess for avascular necrosis and septic joint are evaluated. Denies fevers, sweats, chills, erythema or warmth over the femoral head location or over incision site. On physical exam, hip pain is discretely located over the incision site of the right hip from arthroplasty. Worsening x 1 week. Given Tramadol in the ED and side effects discussed. CT lumbar and pelvis show: IMPRESSION: Degenerative disc disease at multiple levels. Spondylitic ridge flattens the. thecal sac. Left paracentral disc protrusion at L5-S1 likely impinges upon the left. descending nerve root. No foraminal stenosis is noted.IMPRESSION: No fracture of the pelvis is noted. Patient is status post right hip. replacement. D/t no fevers, sweats, chills or other signs of infection, deferred any blood work at this time. Patient is feeling well and states he feels at his baseline other than the increased pain in the hip. He is given 5 day supply tramadol. Patient is currently not on any pain management. Medication explained and limitations and precautions around the medications. He agrees and will follow up with Dr. Majano early next week. Referral is given. No acute changes in the CT scan so possible this is related osteoarthritic changes. Patient made aware of all results and plan. - Diagnoses Differential Diagnosis/HQI/PQRI: Positive: Arthritis, Fracture (Closed), Sprain , Tendonitis Provider Diagnoses: Hip pain, Status post total hip replacement, right - Physician Notifications Instructed by Provider To: Have Pt Call For Appt. - Call Dr. Majano office Discharge - Discharge Plan Condition: Stable Disposition: HOME Prescriptions: traMADol TAB* [Ultram*] 50 mg PO Q8H PRN #15 tab MDD 3 PRN Reason: Pain Patient Education Materials: Precautions after Total Joint Replacement Surgery (ED) Referrals: Betsy Villagran MD [Primary Care Provider] - Additional Instructions: Follow up with Dr. Majano next week Follow up with your PCP Tramadol is prescribed to you Do not take more than the prescribed dosage Take ibuprofen and tylenol intermittently for pain For pain not well controlled with these medications, you may use the Tramadol If you develop redness, streaks of red around the wound, swelling, abnormal drainage or you develop a fever - you need to come back to the ED right away.
--- NOTE | 2017-02-18 11:42 | RAD ---
No compression is noted. At L5-S1 spondylitic ridge flattens the thecal sac. There is spondylitic ridge with likely left posterior lateral disc protrusion with a small foci of air likely representing disc protrusion which impinges upon the left descending S1 nerve root. At L4-L5 spondylitic ridge flattens the thecal sac. No central or foraminal stenosis is noted. No fracture is noted. At L3-L4 spondylitic ridge flattens the thecal sac. No central or foraminal stenosis is noted. At L1-L2 and L2-L3 the disc space appears normal. The transverse processes demonstrates no fracture. IMPRESSION: Degenerative disc disease at multiple levels. Spondylitic ridge flattens the thecal sac. Left paracentral disc protrusion at L5-S1 likely impinges upon the left descending nerve root. No foraminal stenosis is noted.
--- NOTE | 2017-02-18 11:43 | RAD ---
Indication: Right hip pain. CT of the pelvis was obtained in the axial plane. Sagittal and coronal reconstructed images were obtained. The patient is status post right bipolar hip prosthesis. No fracture is noted. No evidence of periprosthetic fracture is noted. The remainder of the pelvic ring is intact. Sacroiliac joints and sacrum are unremarkable. The left hip is grossly unremarkable. The urinary bladder where visualized is unremarkable. There is stool throughout the colon. IMPRESSION: No fracture of the pelvis is noted. Patient is status post right hip replacement.
[2017-02-18 12:32] VITALS: BP 136/75
== END 2017-02-18 12:33 | disposition home or self-care (01) ==
LOC: ED 09:47
DX: T84.84XA Pain due to internal orthopedic prosthetic devices, implants and grafts, initial encounter (principal); Z96.641 Presence of right artificial hip joint; Z87.891 Personal history of nicotine dependence; J44.9 Chronic obstructive pulmonary disease, unspecified; K21.9 Gastro-esophageal reflux disease without esophagitis; I50.9 Heart failure, unspecified; I10 Essential (primary) hypertension; M19.90 Unspecified osteoarthritis, unspecified site; F03.90 Unspecified dementia, unspecified severity, without behavioral disturbance, psychotic disturbance, mood disturbance, and anxiety
CPT/HCPCS: 72131; 72192; 99282; A9270-GY

== ENCOUNTER 2017-08-25 13:58 | Observation (INO) | payer MEDICARE ==
--- NOTE | 2017-08-21 11:18 | CONS ---
GASTROENTEROLOGY CONSULT / HISTORY AND PHYSICAL PREPROCEDURE DATE: 08/21/2017 PROCEDURE: ERCP with common bile duct brushing and stent placement under anesthesia 08/25/17 REASON FOR CONSULTATION: Obstructive jaundice HISTORY OF PRESENT ILLNESS: This 77-year-old man, referred by Dr Villagran, with painless jaundice was seen with his and 2 sons. 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 He had a stress test 3 weeks ago which went fine his says (on request from Dr Villagran). A year ago he had a brief hospitalization for fluid retention. He is not on any anticoagulant other than a baby aspirin. Two weeks ago he began feeling tired and was anorectic. His oral intake has diminished substantially. There has been no vomiting or fever, and no complaint of pain. 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 His was ill and when he got in to see his primary jaundice was obvious, and he was sent for CT scan which showed a dilated biliary tree and gallbladder , with small pancreatic head mass. At this time he continues without pain. A year and a half ago, February 2016, he had a total hip replacement with Dr. Majano and postop went into delirium. Had a very complex extended recovery requiring a stay in nursing facility that lasted almost 3 months. There was no particular orthopedic complication apparently. He has been cognitively impaired since then. He is also hard of hearing. PAST MEDICAL/SURGICAL HISTORY: 1. Diabetes - 8 or 9 years at least without end organ complications. 2. Coronary artery disease - status post bypass 20 years ago - followed by Dr Norman Craven in [place]. He had never had any thromboembolic phenomenon. He was on Plavix a few years back, but not now. His cannot recall the circumstances of stopping it. 3. Hypertension. 4. Dementia - for at least a few years. 5. Status post appendectomy. 6. Status post right total hip arthroplasty. MEDICATIONS: Four days ago Dr Villagran discontinued his statin, magnesium and Flomax. He continues on a baby aspirin, Furosemide 20, Albuterol p.r.n. which is infrequent. ALLERGIES: He has no known drug allergies. Later Tramadol was added to the list FAMILY HISTORY: His mother had COPD from smoking. 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 Quit smoking many years ago. He is a nondrinker. REVIEW OF SYSTEMS: No history of arrhythmia, syncope, thromboembolic phenomenon , seizure, CVA, hematuria, renal stone. There is no record of colonoscopy in the last 10 years. No rash or itching. No fever. PHYSICAL EXAMINATION: GENERAL: He is an intensely jaundiced man, comfortable, in no distress. SKIN: His skin is normal. HEENT: Otherwise unremarkable. NECK: He has no adenopathy. LUNGS: His lungs are clear. HEART: Sounds are regular. ABDOMEN: Obese with no palpable mass. EXTREMITIES: Show no edema. RECTAL: Deferred. LABORATORY DATA: CBC 08/17/17 hemoglobin 14.6, hematocrit 41, MCV 98, platelets 170. Chemistries show bilirubin 18.8, alkaline phosphatase 731, ALT 359. INR and CA19-9 pending. IMPRESSION/PLAN/RECOMMENDATIONS: This 77-year-old man with dementia, and who is hard of hearing has his as decision maker. Difficulty with communication cognition appears more based on dementia. He is, however, structurally quite functional and had been doing well up until about 2 weeks ago. There are no easy options here, but immediate palliative care does not appear to be a reasonable option to the family. He may have a hepatic met on his CT scan. The first step will be to place a stent which may be plastic or metal depending on further analysis of the CBD and findings at ERCP. Conversation was held with Dr. Villagran and metal stent appears to be the best initial option rather than directly consulting Oncology or Palliative Care. ERCP usually would not require rehabilitation, dealing with pain or pain medications, and hopefully will be weathered more easily than the total hip replacement. Family will try to stay with him in the hospital afterwards. [id number]/[facility] #: [id number] [facility]
[~2017-08-25 13:58] MED LIST: Buffered Lidocaine 0.9% SYRIN* 5 ML/SYR SYRINGE INTRADERM ONE; Sodium Citrate/Citric Acid* 15 ML UDC PO ONE
[2017-08-25] MEDS ORDERED: fentaNYL* 50 MCG/ML 2 ML VIAL (100 MCG VIAL) ONE ×2 (14:52→18:06)
[2017-08-25] MEDS ORDERED: Lidocaine 2% PF * 5 ML VIAL ONE (14:53)
[2017-08-25] MEDS ORDERED: Cisatracurium* 2 MG/ML MDV 5 ML ONE (14:53)
[2017-08-25] MEDS ORDERED: Etomidate* 2 MG/ML 10 ML VIAL ONE (14:54)
[2017-08-25] MEDS ORDERED: Propofol* 10 MG/ML 20 ML BTL IV PUSH ONE ×2 (14:54→17:46)
[2017-08-25] MEDS ORDERED: Succinylcholine* 20 MG/ML 10 ML VIAL ONE (14:54)
[2017-08-25] MEDS ORDERED: Propofol* 0 MG/0 ML BTL ONE (14:57)
[2017-08-25] MEDS ORDERED: HYDROmorphone INJ* 1 MG/ML CARPUJECT SYRINGE IV PRN (15:12)
[2017-08-25] MEDS ORDERED: diPHENhydraMINE IV* 50 MG/ML 1 ml VIAL (BENADRYL) IV PRN (15:12)
[2017-08-25] MEDS ORDERED: Levalbuterol 0.63MG/3ML NEB* UNIT OF USE INH PRN (15:12)
[2017-08-25] MEDS ORDERED: Naloxone* 0.4 MG/ML 1 ML VIAL IV PRN (15:12)
[2017-08-25] MEDS ORDERED: fentaNYL* 50 MCG/ML 2 ML VIAL (100 MCG VIAL) IV PRN (15:12)
[2017-08-25] MEDS ORDERED: Ondansetron INJ* 2 MG/ML VIAL IV PRN (15:12)
[2017-08-25] MEDS ORDERED: Haloperidol INJ IV/IM* 5 MG/ML AMP IV SLOW PU PRN (15:14)
[2017-08-25] MEDS ORDERED: PIPERACILLIN IVPB ONE ×2 (17:00)
[2017-08-25] MEDS ORDERED: TAZOBACTAM IVPB ONE ×2 (17:00)
[2017-08-25] MEDS ORDERED: Acetaminophen TAB* 325 MG PO PRN (18:52)
[2017-08-25] MEDS ORDERED: Al Hydrox/Mg Hydrox/Simet LIQ* 30 ML UDC PO PRN (18:52)
[2017-08-25] MEDS ORDERED: Glucagon* 1 MG VIAL ONE ×2 (18:53→18:54)
--- NOTE | 2017-08-25 18:55 | RAD ---
INDICATION: ERCP, jaundice COMPARISONS: CT dated August 18, 2017 TECHNIQUE: Fluoroscopy was provided for ERCP. Total fluoroscopy time is: 2 minutes, 30 seconds FINDINGS: Spot images demonstrate contrast within the biliary tree which is dilated to the level of the distal common duct. A metallic biliary stent is noted. IMPRESSION: FLUOROSCOPY WAS PROVIDED FOR ERCP CPT II Codes: 6045F
[2017-08-25] MEDS ORDERED: Albuterol HFA INHALER* 8 gm MDI INH PRN (19:10)
[2017-08-25 21:26] LABS: EGFR Non-African American 53.8 (>60)
--- NOTE | 2017-08-25 21:49 | HP ---
HISTORY AND PHYSICAL: DATE OF ADMISSION: 08/25/17 TIME OF ADMISSION: 7:15 p.m. PRIMARY CARE PHYSICIAN: Dr. Villagran. INDUSTRIAL AERIAL INSTALLER: Dr. Nunn. CHIEF COMPLAINT: Painless jaundice. HISTORY OF PRESENT ILLNESS: Mr. Zarate is a 77-year-old man with a history of diabetes, BPH, and coronary artery disease, who was admitted to the hospitalist service from endoscopy suite where he had an elective ERCP today. He presented to his PCP's office 6 days ago with painless jaundice and was referred immediately to Dr. Nunn, who performed an ERCP today with a CBD stent inserted and brushings taken for pathology given the concern for pancreatic cancer. He is admitted to our service for observation postprocedurally, given his history of complications with anesthesia. His , son, and daughter-in- law are at the bedside postprocedurally in the PACU. They provide most of the history as Mr. Zarate is still drowsy from anesthesia, however, he is appropriate, nods yes and no to my questions, and follows simple commands. His family reports some short-term memory loss at home; however, he completes all of his ADLs and most of his IADLs independently and regularly knows the time, date, place, and self. He has recently denied any abdominal pain, nausea, vomiting, diarrhea, fevers, chills. His does believe he has had some weight loss over the past few weeks. Of note, during the procedure Anesthesiology noted an episode of atrial fibrillation, which resolved on its own without intervention and he is now in normal sinus rhythm. His knows of no known history of atrial fibrillation. PAST MEDICAL HISTORY: 1. Diastolic heart failure. 2. COPD. 3. Diet-controlled type 2 diabetes mellitus. 4. Hypertension. 5. Coronary artery disease, status post CABG. 6. Benign prostatic hypertrophy. HOME MEDICATIONS: 1. Lasix 40 mg daily. 2. Aspirin 81 mg daily. 3. Albuterol 2 puffs q.4 p.r.n. shortness of breath. His statin and Flomax were recently stopped by his PCP. SOCIAL HISTORY: He lives at home with his , Misti. Misti is his healthcare proxy. 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 He is a former smoker, but quit many years ago. PHYSICAL EXAMINATION GENERAL: Drowsy, elderly-appearing man, in no distress, who awakens to voice. He is jaundiced. VITAL SIGNS: Temperature 97 degrees, heart rate 79, respiratory rate 16, pulse ox 97% on 2 L, blood pressure 90/77. HEENT: Scleral icterus, pupils 4 mm bilaterally and reactive to light. No nystagmus. He has subungual jaundice. His face is symmetric. NECK: No JVP. No cervical lymphadenopathy. LUNGS: Clear bilaterally. No wheezes or rhonchi. CHEST: Regular rate and rhythm. No murmurs. Old sternotomy incision well healed. PMI is nondisplaced. ABDOMEN: Obese. His liver is palpable at the coastal margin. He has no tenderness to palpation. No rebound, no guarding. EXTREMITIES: No asterixis. No edema, no rashes, no ulcers. NEUROLOGIC: He follows simple commands, but is drowsy and awakens to voice. DIAGNOSTIC STUDIES/LAB DATA: On 08/25/17, white blood cells 9.7, hemoglobin 13.7, platelets 198. INR 1.25. Sodium 134, chloride 95, BUN 27, creatinine 1.25. Total bilirubin 34.5, ALT 419, alk phos 1065. Imaging: Abdomen and pelvis CT performed 08/18/17 shows dilated intrahepatic duct, common bile duct, and dilated gallbladder. There is abrupt termination of the CBD at the pancreatic head with suggestion of a mass in the pancreatic head measuring 12 mm. There is pancreatic duct dilatation as well. This is consistent with the pancreatic adenocarcinoma. CA 19-9 was 810. ASSESSMENT AND PLAN: This is a 77-year-old man with history of diabetes, coronary artery disease, and chronic obstructive pulmonary disease, who presents from the endoscopy suite where he was undergoing an ERCP for evaluation of likely pancreatic adenocarcinoma for observation overnight. 1. Suspected pancreatic adenocarcinoma. Pathology is pending. His bilirubin is 37. He has no pruritus. Dr. Nunn will follow up his pathology as an outpatient. We will observe him overnight. His reports that he required physical and chemical restraints after a hip arthroplasty 2 years ago. We will avoid narcotics and benzodiazepines. 2. Coronary artery disease. Continue aspirin. His PCP has deescalated his medical regimen including a statin given his liver dysfunction. 3. New-onset atrial fibrillation. This was provoked in the procedure. We will monitor him on telemetry overnight. He had a recent stress test preoperatively, which was negative for ischemia. His last echocardiogram was in 2016 and showed [id number] left ventricular hypertrophy with an ejection fraction of 55% to 60% and [id number] pulmonary hypertension. He may be having periods of paroxysmal atrial fibrillation; however, I cannot estimate the burden of disease at this point. He will not be a good candidate for therapeutic anticoagulation given his coagulopathy from liver dysfunction. 4. Chronic obstructive pulmonary disease. He is only on p.r.n. albuterol at home and no controlled medications. His reports that his chronic obstructive pulmonary disease has been well controlled on albuterol only. 5. Disposition. Admit to the hospitalist service to the telemetry floor for observation overnight. He can have a clear liquid diet and if he tolerates that well, we will plan to advance his diet in the morning and discharge him home with close GI and oncologic followup. [id number]/[facility] #: [id number] [facility]
[2017-08-25] MEDS ORDERED: Potassium Chlor TAB* 20 MEQ TAB.ER PO ONE (22:19)
--- NOTE | 2017-08-26 05:21 | PRO ---
DATE: 08/25/17 - ROOM #[id number] REFERRING PHYSICIAN: Betsy Villagran MD * PROCEDURE: ERCP and sphincterotomy with brush cytology, common bile duct stricture, and placement of 40 mm Wallstent. INDICATION: This 77-year-old man presented with obstructive jaundice and had an abnormality of the pancreatic head. His INR few days ago was 1.26, so he was given vitamin K orally and then subcu. Discussion was held with the patient, his , and sons regarding the type of stent and given a variety of factors, a Wallstent which would presumably preclude the possibility of surgery was chosen as the plan. ENDOSCOPIST: Dr. Joshi MEDICATIONS: General anesthesia. FINDINGS: He is an intensely jaundiced, moderately overweight, older man, in no distress. ERCP: Esophagus - 20% views are normal. Stomach - 50% views of the antrum are normal. Duodenum - normal pale mucosa and the medial wall of the third portion of the duodenum was tensely edematous with 4 to 5 folds in sequence quite edematous. The tip of a of sphincterotome was used to explore between the folds and identified a possible papilla, although it was flat and had no material discharging from it whatsoever. Probing with the sphincterotome could not establish a plane and a guidewire cannulation was not successful initially. Eventually, working with fair amount of pressure and lifting the tip of the scope, the sphincterotome was essentially blunt dissected higher up and there was incremental progress with alternatively the sphincterotome and the wire and then finally the wire was seemed to flip into the common hepatic duct area and within the liver. A brief examination was done demonstrating dilated intrahepatic ducts. Once this was accomplished, the guidewire was locked. The sphincterotomy done at an 11 o'clock orientation for about 8 to 9 mm. Biliary brushing was then done. Dye injection was done in the distal common duct to try to define the lower margin of the free common duct. This appeared adequate for 4 cm stent. This was then placed in a standard fashion with a couple of diamonds of stent external. Bile fluid copiously. During the procedure, the patient had transiently gone into atrial fibrillation , medications were given and he flipped back into sinus rhythm. IMPRESSION: 1. Pancreatic head mass and edematous duodenal wall. 2. 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 [id number]/[facility] #: [id number] [facility]
[2017-08-26 05:29] LABS: Hematocrit 35 % (42-52); Hemoglobin 12.3 g/dl (14.0-18.0); Mean Corpuscular HGB Conc 35 g/dl (31-36); Mean Corpuscular Hemoglobin 34 pg (27-31); Mean Corpuscular Volume 99 fL (80-94); Mean Platelet Volume 9.7 um3 (7.4-10.4); Platelet Count 187 10^3/ul (150-450); Red Blood Count 3.59 10^6/ul (4.0-5.4); Red Cell Distribution Width 16 % (10.5-15); White Blood Count 9.6 10^3/ul (3.5-10.8)
[2017-08-26 05:37] LABS: INR 1.17 (0.77-1.02)
[2017-08-26 05:43] LABS: EGFR Non-African American 56.3 (>60)
[2017-08-26 06:36] LABS: Monocytes % 10 % (0-7)
[2017-08-26] MEDS ORDERED: Potassium Chlor TAB* 20 MEQ TAB.ER PO ONE (08:48)
[2017-08-26] MEDS ORDERED: Furosemide TAB* 40 MG PO SCH (09:00)
[2017-08-26] MEDS ORDERED: Aspirin EC Low Dose* 81 MG TAB.EC PO SCH (09:00)
[2017-08-26] MEDS ORDERED: Tamsulosin CAP* 0.4 MG PO SCH (09:00)
[2017-08-26 11:52] VITALS: BP 123/65
--- NOTE | 2017-08-27 00:50 | DS ---
CC: Dr. Joshi; Dr. Villagran * DISCHARGE SUMMARY: DATE OF ADMISSION: 08/25/17 DATE OF DISCHARGE: 08/26/17 PRINCIPAL DISCHARGE DIAGNOSES: 1. Painless jaundice. 2. Status post ERCP with common bile duct stenting. 3. Pancreatic brushing. SECONDARY DISCHARGE DIAGNOSES: 1. Diet controlled diabetes mellitus. 2. Diastolic heart failure. 3. COPD. 4. Coronary artery disease status post CABG. 5. BPH. HOSPITAL COURSE BY PROBLEM: 1. Status post ERCP. Mr. Zarate was admitted from the endoscopy suite where he was undergoing elective ERCP for brushing for workup of painless jaundice. He was admitted to the hospitalist service overnight for observation due to his history of agitation and delirium postoperatively from a hip arthroplasty 2 years ago. He experienced none of these symptoms during this admission and tolerated the procedure very well. His night of admission was uneventful and he required no further intervention. Regarding the ERCP, the pathology from the brushing is pending at the time of discharge. He is instructed to follow up with Dr. Wilcox and Dr. Joshi and I have provided his with both of their office phone numbers. On the day of admission, his total bilirubin was 34 and on the day of discharge, his total bilirubin is 24. He reports an appetite for the first time in several weeks and his reports improvement already today in his mental status as opposed to the past couple months. 2. One episode of atrial fibrillation intraoperatively. Anesthesia reported nonsustained atrial fibrillation intraop that resolved on its own and he remained in normal sinus rhythm on telemetry overnight. He has no history of atrial fibrillation. He had a recent stress test that was negative prior to the procedure. He requires no rate controlling agents. He is a poor candidate for anticoagulation given his coagulopathy and I cannot estimate the burden of disease at this point. 3. Diastolic heart failure. He was continued on Lasix 40 mg daily. 4. Coronary artery disease status post CABG. He takes aspirin only for this. His medications have recently been deescalated given his dementia. 5. BPH. His Flomax has also been discontinued. 6. COPD. He is only on albuterol p.r.n. and he required no further intervention during this admission. 7. Disposition: Mr. Zarate is discharged to home with his and instruction to follow up with Dr. Wilcox. PHYSICAL EXAMINATION AT THE TIME OF DISCHARGE: Temperature 97.6, heart rate 68 , pulse ox 100% on 2 L, blood pressure 139/80, respiratory rate 20. General: Alert, well appearing man in no distress. He is oriented to person only. HEENT : Scleral icterus is noted. Pupils are equal, round, and reactive to light with no nystagmus. Moist mucosa. No JVP. No cervical lymphadenopathy. Chest : Regular rate and rhythm. I hear no murmurs. His PMI is nondisplaced. His lungs are clear bilaterally with no wheezes or rhonchi. Abdomen is obese, soft , nontender, nondistended. Liver is nonpalpable. No guarding or rebound. Extremities: No edema. No rashes. No ulcers. Some ecchymosis is present on the hands and forearms. No asterixis is present. [id number]/[facility] #: [id number] [facility]
== END 2017-08-26 12:29 | disposition home or self-care (01) ==
LOC: OR 13:58 → MEDTELE 20:29 → INTOOBSV 20:29
PROVIDERS: ADMIT Internal Medicine Gastroenterology; ATTEND Internal Medicine
PROC: 0FB98ZX Excision of Common Bile Duct, Via Natural or Artificial Opening Endoscopic, Diagnostic (ICD-10-PCS; principal; 2017-08-25 15:30)
DX: R17 Unspecified jaundice (principal); E11.9 Type 2 diabetes mellitus without complications; I11.0 Hypertensive heart disease with heart failure; I50.30 Unspecified diastolic (congestive) heart failure; J44.9 Chronic obstructive pulmonary disease, unspecified; Z95.1 Presence of aortocoronary bypass graft; I48.91 Unspecified atrial fibrillation; N40.0 Benign prostatic hyperplasia without lower urinary tract symptoms; Z79.899 Other long term (current) drug therapy; Z79.82 Long term (current) use of aspirin; Z88.8 Allergy status to other drugs, medicaments and biological substances; Z87.891 Personal history of nicotine dependence; F03.90 Unspecified dementia, unspecified severity, without behavioral disturbance, psychotic disturbance, mood disturbance, and anxiety; R94.31 Abnormal electrocardiogram [ECG] [EKG]
CPT/HCPCS: 36415; 74328; 80048; 80076; 83735; 84484; 85025; 85610; 88112; 93005; A9270-GY; C1769; C1874; G0378; J0330; J1610; J2543; J2704; J3010

== ENCOUNTER 2017-10-10 10:47 | Observation (INO) | payer MEDICARE ==
[2017-10-10] MEDS ORDERED: NS 0.9% 1000 ML* 1,000 ML IV ONE (11:48)
[2017-10-10 12:09] LABS: ABS Basophils 0.1 10^3/ul (0-0.2); ABS Eosinophils 0 10^3/ul (0-0.6); ABS Lymphocytes 1.3 10^3/ul (1.0-4.8); ABS Neutrophils 10.3 10^3/ul (1.5-7.7); ABS Nucleated RBC 0 10^3/ul; Eosinophil % 0 % (0-6); Hematocrit 38 % (42-52); Hemoglobin 12.8 g/dl (14.0-18.0); Lymphocyte % 10.3 % (25-47); Mean Corpuscular HGB Conc 34 g/dl (31-36); Mean Corpuscular Hemoglobin 35 pg (27-31); Mean Corpuscular Volume 102 fL (80-94); Mean Platelet Volume 8.2 um3 (7.4-10.4); Nucleated Red Blood Cells % 0; Platelet Count 153 10^3/ul (150-450); Red Blood Count 3.69 10^6/ul (4.0-5.4); Red Cell Distribution Width 14 % (10.5-15); White Blood Count 12.7 10^3/ul (3.5-10.8)
[2017-10-10 12:10] LABS: Urine Appearance Clear; Urine Blood Negative (Negative); Urine Color Yellow; Urine Ketones Negative (Negative); Urine Protein Negative (Negative); Urine Specific Gravity 1.004 (1.010-1.030); Urine Urobilinogen Negative (Negative)
[2017-10-10 12:29] LABS: EGFR Non-African American 71.2 (>60)
--- NOTE | 2017-10-10 12:31 | RAD ---
INDICATION: Altered mental status, history of pancreatic cancer. COMPARISON: Comparison is made with a prior CT of the brain from March 22, 2016. TECHNIQUE: Contiguous axial sections of the brain were obtained from the skull base to the vertex without contrast. FINDINGS: The ventricles, cisterns and sulci are enlarged consistent with diffuse atrophy. No significant focal abnormality or mass effect is seen. There is no evidence for hemorrhage. No significant focal osseous abnormality is seen. The visualized portion of the paranasal sinuses and mastoid air cells appear clear. IMPRESSION: 1. NO EVIDENCE FOR ACUTE INTRACRANIAL ABNORMALITY. 2. DIFFUSE ATROPHY.
--- NOTE | 2017-10-10 12:51 | RAD ---
INDICATION: Altered mental status. COMPARISON: Comparison is made with a prior chest x-ray study from July 08, 2016. TECHNIQUE: A portable view of the chest was obtained. FINDINGS: The patient appears to be status post coronary artery bypass surgery. The heart appears mildly enlarged and unchanged. There is mild prominence of the interstitial markings which is unchanged. There is increased density which projects along the left heart border possibly representing an infiltrate. No pleural effusion is seen. There is a 5 mm nodular density which projects above the right lung base which correlates with a calcified nodule on the prior PET/CT study from October 04, 2007 suggestive of old granulomatous disease. IMPRESSION: POSSIBLE LEFT LUNG INFILTRATE. RECOMMEND PA AND LATERAL CHEST FILMS WHEN THE PATIENT IS CLINICALLY ABLE.
[2017-10-10] MEDS ORDERED: Azithromycin IV(*) 500 MG in NS 0.9% 250 ML* 250 ML IVPB ONE (13:04)
[2017-10-10] MEDS ORDERED: cefTRIAXone(*) 1 GM in NS 0.9% 50 ML* 50 ML IVPB ONE (13:07)
[2017-10-10] MEDS ORDERED: Acetaminophen TAB* 325 MG PO PRN (16:34)
[2017-10-10] MEDS ORDERED: DiMENhydriNATE TAB* 50 MG TAB PO PRN (16:39)
[2017-10-10] MEDS ORDERED: Enoxaparin(*) 40 MG/0.4 ML SYR SUBCUT SCH (17:00)
--- NOTE | 2017-10-10 18:43 | RAD ---
INDICATION: Weakness, confusion. Pancreatic cancer. Assess for pneumonia. COMPARISON: October 10, 2017 1232 hours chest radiograph and October 04, [address] July 08, 2016 chest radiograph. TECHNIQUE: Dual energy PA and routine lateral views of the chest were obtained. REPORT: Elevated lung volumes and moderate prominence of interstitial markings without gross change accounting for difference in technique. Prominent RIGHT and LEFT epicardial fat pads confirmed on prior CT and similar in appearance on the 2017 chest radiograph. Grossly clear pleural spaces. Negative for pneumothorax. Median sternotomy wires. Negative for cardiomegaly. Unremarkable central pulmonary vasculature. Negative for free air beneath the diaphragm. IMPRESSION: Stigmata of obstructive lung disease. No evidence for pneumonia.
[2017-10-10] MEDS: NS 0.9% 1000 ML* 1,000 ML IV SCH (19:28)
[2017-10-11 06:58] LABS: ABS Basophils 0.1 10^3/ul (0-0.2); ABS Eosinophils 0.1 10^3/ul (0-0.6); ABS Monocytes 0.8 10^3/ul (0-0.8); ABS Neutrophils 4.9 10^3/ul (1.5-7.7); ABS Nucleated RBC 0 10^3/ul; Eosinophil % 1.2 % (0-6); Hematocrit 35 % (42-52); Hemoglobin 12.2 g/dl (14.0-18.0); Lymphocyte % 14.8 % (25-47); Mean Corpuscular HGB Conc 35 g/dl (31-36); Mean Corpuscular Hemoglobin 36 pg (27-31); Mean Corpuscular Volume 101 fL (80-94); Nucleated Red Blood Cells % 0; Platelet Count 128 10^3/ul (150-450); Red Blood Count 3.41 10^6/ul (4.0-5.4); Red Cell Distribution Width 14 % (10.5-15); White Blood Count 6.9 10^3/ul (3.5-10.8)
[2017-10-11 07:21] LABS: EGFR Non-African American 89.1 (>60)
[2017-10-11] MEDS ORDERED: Aspirin EC TAB* 81 MG TAB.EC PO SCH (09:00)
[2017-10-11] MEDS ORDERED: Azithromycin IV(*) 500 MG in NS 0.9% 250 ML* 250 ML IVPB SCH (09:00)
[2017-10-11] MEDS ORDERED: Tamsulosin CAP* 0.4 MG PO SCH (09:00)
[2017-10-11] MEDS ORDERED: Potassium Chlor TAB* 20 MEQ TAB.ER PO SCH (09:00)
[2017-10-11] MEDS: NS 0.9% 1000 ML* 1,000 ML IV SCH (09:10)
--- NOTE | 2017-10-11 09:31 | ED ---
Leander Venegas Jennifer, scribed for Roxie Tobar MD on 10/10/17 at 1145 . Altered Mental Status - HPI Summary HPI Summary: The patient is a 77 year old male who presents with confusion since 21:00 last night. The patients gave the history. states the patient was fine when she left home at 17:00 last night but he was confused when she came home at 21:00. The patient is unable to state the president or the month in the ED, whereas the says he would normally know this. She is concerned because the patient is about to start a 5-week radiation therapy for pancreatic cancer soon. The denies facial dropping and slurred words. LEVEL 5 CAVEAT: HPI LIMITED DUE TO PT CONFUSION. - History Of Current Complaint Chief Complaint: EDAltMentalStatus Stated Complaint: AMS Time Seen by Provider: 10/10/17 11:23 Hx Obtained From: Family/Field Scout - Hx From Patient Unobtainable Due To: Altered Mental Status Onset/Duration: Suddenly - last night 21:00 Timing: Constant, Lasting Hours Severity Initially: Mild Severity Currently: Mild Character: Confusion Aggravating Factor(s): Nothing Alleviating Factor(s): Nothing Related History: Recent Illness - Dx Pancreatic cancer - Allergies/Home Medications Allergies/Adverse Reactions: Allergies Allergy/AdvReac Type Severity Reaction Status Date / Time Anesthetics - Delmy Type- Allergy DELIRIOUS Verified 09/01/17 11:22 Parabens tramadol AdvReac See Comment Verified 08/24/17 14:42 ANY MIND ALTERING MED Allergy DELIRIOUS Uncoded 09/01/17 11:22 Home Medications: Home Medications DiMENhydriNATE TAB* [DraMAMine TAB*] 50 mg PO Q6H PRN 10/10/17 [History Confirmed 10/10/17] Vitamin B Complex TAB* [B Complex-50*] 1 tab PO DAILY 10/10/17 [History Confirmed 10/10/17] PMH/Surg Hx/FS Hx/Imm Hx Endocrine/Hematology History: Reports: Hx Diabetes Cardiovascular History: Reports: Hx Angina, Hx Congestive Heart Failure, Hx Coronary Artery Disease - Coronary bypass grafting, Hx Hypertension, Other Cardiovascular Problems/Disorders - CARDIAC BYPASS [place] Denies: Hx Pacemaker/ICD Respiratory History: Reports: Hx Asthma, Hx Chronic Obstructive Pulmonary Disease (COPD) Comment Only: Other Respiratory Problems/Disorders - LIMITED HX DUE TO PT MEMORY GI History: Reports: Hx Gastroesophageal Reflux Disease, Hx Jaundice, Other GI Disorders - Dilated biliary tree and gallbladder, small pancreatic head mass History: Reports: Hx Benign Prostatic Hyperplasia, Other Problems/ Disorders - UTI at presentEnlarged prostate -on flomax Denies: Hx Renal Disease Musculoskeletal History: Reports: Hx Arthritis, Other Musculoskeletal History - back pain Sensory History: Reports: Hx Cataracts - HAD SURGERY, Hx Deafness Denies: Hx Contacts or Glasses, Hx Hearing Aid - pt refuses - HARD OF HEARING Opthamlomology History: Reports: Hx Cataracts - HAD SURGERY Denies: Hx Contacts or Glasses Neurological History: Reports: Hx Dementia, Other Neuro Impairments/Disorders - Delerium following hip replacement Psychiatric History: Reports: Hx Depression - Per pts Denies: Hx Panic Disorder - Cancer History Cancer Type, Location and Year: 08/25/17 - NEWLY DX PANCREATIC CANCER - TREATMENT PLANNING Hx Chemotherapy: No Hx Radiation Therapy: No - Surgical History Surgery Procedure, Year, and Place: 08/25/17 ERCP W/ STENT. APPENDECTOMY. CARDIAC BYPASS - PER NO TEMP PACER. Rt TOTAL HIP REPLACEMENT Hx Anesthesia Reactions: No - Combative delruim follow hip replacement Infectious Disease History: No Infectious Disease History: Denies: Traveled Outside the [place] in Last 30 Days - Family History Known Family History: Positive: Respiratory Disease - Mother had emphysema. , Other - Father had cancer. Negative: Cardiac Disease Family History: No FHx anesthesia reaction - Social History Alcohol Use: None Hx Substance Use: No Substance Use Type: Reports: None Hx Tobacco Use: Yes Smoking Status (MU): Former Smoker Have You Smoked in the Last Year: No Review of Systems Negative: Fever Neurological: Other - confusion All Other Systems Reviewed And Are Negative: No - Comments Additional Review of Systems Comments: LEVEL 5 CAVEAT: ROS LIMITED DUE TO PT CONFUSION. Physical Exam - Summary Physical Exam Summary: GENERAL: ~Patient is a well developed and nourished M who is lying comfortable in the stretcher. ~Patient is not in any acute respiratory distress. HEAD AND FACE: Normocephalic EYES: PERRLA, EOMI x 2. EARS: Hearing grossly intact. MOUTH: Oropharynx within normal limits. NECK: Supple, trachea is midline, no adenopathy, no JVD, no carotid bruit. CHEST: Symmetric, no tenderness at palpation LUNGS: Clear to auscultation bilaterally. No wheezing or crackles. CVS: Regular rate and rhythm, S1 and S2 present, no murmurs or gallops appreciated. ABDOMEN: Soft, non-tender. Bowel sounds are normal. No abdominal abnormal pulsations. EXTREMITIES: Full ROM in all major joints, no edema, no cyanosis or clubbing. NEURO: Alert and oriented x1. No acute neurological deficits. Speech is normal and follows commands. SKIN: Dry and warm Triage Information Reviewed: Yes Vital Signs On Initial Exam: Initial Vitals Temp Pulse Resp BP Pulse Ox 98.4 F 80 14 117/63 98 10/10/17 10:58 10/10/17 10:58 10/10/17 10:58 10/10/17 10:58 10/10/17 10:58 Vital Signs Reviewed: Yes Completion Of Physical Exam Limited Due To: Other - LEVEL 5 CAVEAT: PE LIMITED DUE TO PT CONFUSION. Diagnostics - Vital Signs Vital Signs Temp Pulse Resp BP Pulse Ox 10/10/17 11:16 78 22 125/72 94 10/10/17 11:15 80 16 94 10/10/17 10:58 98.4 F 80 14 117/63 98 - Laboratory Result Diagrams: 10/10/17 11:47 10/10/17 11:47 Lab Statement: Any lab studies that have been ordered have been reviewed, and results considered in the medical decision making process. - Radiology CXR Xray Interpretation: Positive (See Comments) - POSSIBLE LEFT LUNG INFILTRATE. RECOMMEND PA AND LATERAL CHEST FILMS WHEN THE PATIENT IS CLINICALLY ABLE. Dr. Tobar has reviewed this report. Radiology Interpretation Completed By: Radiologist - CT Brain CT CT Interpretation: No Acute Changes - 1. NO EVIDENCE FOR ACUTE INTRACRANIAL ABNORMALITY. 2. DIFFUSE ATROPHY. Dr. Tobar has reviewed this report. CT Interpretation Completed By: Radiologist - EKG 1242 Cardiac Rate: NL EKG Rhythm: Sinus Rhythm - 68 BPM EKG Interpretation: ST depression in anterolateral leads EKG Comparison: No Significant Change - similar to previous EKGs Altered Mental Statu Course/Dx - Course Course Of Treatment: The patient is a 77 year old male who presents with confusion since 21:00 last night. In the ED course the patient was given IV fluids, Rocephin, Zithromax. Bloodwork and urinalysis were obtained. CXR showed POSSIBLE LEFT LUNG INFILTRATE. CT Brain showed 1. NO EVIDENCE FOR ACUTE INTRACRANIAL ABNORMALITY. 2. DIFFUSE ATROPHY. EKG was obtained. The patient is diagnosed with pneumonia. He was admitted to [facility] [place]. - Diagnoses Provider Diagnoses: Pneumonia Discharge - Sign-Out/Discharge Documenting (check all that apply): Discharge/Admit/Transfer - Discharge Plan Condition: Good Disposition: ADMITTED TO [facility] Referrals: Betsy Villagran MD [Primary Care Provider] - The documentation as recorded by the Leander ceron Jennifer accurately reflects the service I personally performed and the decisions made by , Roxie Tobar MD.
[2017-10-11] MEDS ORDERED: cefTRIAXone(*) 1 GM in NS 0.9% 50 ML* 50 ML IVPB SCH (12:00)
[2017-10-11 12:09] VITALS: BP 132/72
--- NOTE | 2017-11-16 13:30 | HP ---
HISTORY AND PHYSICAL: DATE OF ADMISSION: 10/10/17 REASON FOR ADMISSION: Increased confusion in a patient recently diagnosed with pancreatic carcinoma. HISTORY OF PRESENT ILLNESS: Mr. Zarate is a 77-year-old male who was first seen in our office on 08/30/17. He had become increasingly confused over a several-week period of time along with increasing lethargy, marked decrease in appetite and weight loss. He was seen by his family physician at [facility] and found to have painless jaundice. Hospitalization at [facility] on 08/18/17, where a CT scan revealed a dilated intrahepatic duct, common bile duct and dilated gallbladder. There was abrupt termination in the common bile duct and the pancreatic head was suggestive of a mass measuring 12 mm. The patient underwent an ERCP. Brushings revealed poorly differentiated adenocarcinoma. The patient had a temporary episode of atrial fibrillation during that procedure. He was able to be discharged to home on 08/26/17 without complications. He was felt to be a poor candidate for anticoagulation. He, therefore, was not placed on anticoagulation following his atrial fibrillation. Bilirubin markedly improved from a high of 34.5 down to well under 10. Other LFTs improved significantly as well. When first seen in the office on 08/30/17, he had been remaining confused and also having some visual hallucinations. It should be noted that he was driving as recently as 2 months ago. His memory has continued to worsen over time. At the time of this admission, he had increasing confusion since 9 p.m. on the night prior to admission. He was unable to recognize his surroundings. He did not have any focal neurologic deficits. He was seen in the emergency room where there was a question of an infiltrate on the chest x-ray and a decision was made to admit him to the oncology service. PAST MEDICAL HISTORY: 1. Coronary artery disease, status post bypass 20 years ago. 2. History of COPD, on oxygen, former smoker. 3. Stress test in July 2017, unremarkable. 4. Diabetes type 2, not on medications. 5. Weight loss. 6. Hypertension. 7. Worsening dementia. 8. Status post appendectomy. 9. Status post total hip arthroplasty. MEDICATIONS: At this time include: 1. Aspirin 81 mg daily. 2. Potassium chloride. 3. Tamsulosin 0.4 mg daily. 4. Cyanocobalamin 1000 mcg daily. ALLERGIES: TRAMADOL. FAMILY HISTORY: Noncontributory. SOCIAL HISTORY: The patient is a former smoker. Lives with his . 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 He has never been a drinker. REVIEW OF SYSTEMS: Energy level has been poor. Weight loss as discussed above. No nausea, vomiting. No changes in bowel habits. No significant urinary symptoms. No major arthritic or bony complaints. No shortness of breath , chest pain or palpitations recently. No major fever, sweats, chills, cough or other signs of infection. Worsening dementia. PHYSICAL EXAMINATION GENERAL: A 77-year-old male in no acute distress. VITAL SIGNS: Blood pressure 117/63, pulse 80, afebrile. HEENT: PERRL. EOMI. No erythema or exudates. NECK: No palpable cervical or supraclavicular or axillary adenopathy. LUNGS: Clear. HEART: Regular rate and rhythm without murmurs, rubs, or gallops. ABDOMEN: Soft and nontender without masses or organomegaly. EXTREMITIES: No clubbing, cyanosis or edema. BACK: No CVA or spinal tenderness. LABORATORY DATA: CBC with a white count of 12,700, hematocrit 38, hemoglobin 12.8, platelet count 153,000. Chemistry studies: Sodium 140, potassium 3.3, chloride 103, bicarb 27, BUN 18, creatinine 1.0, glucose 167. Bilirubin mildly elevated at 1.6. Troponin 0.04. LFT's otherwise unremarkable. IMAGING: Chest x-ray was read as a questionable infiltrate on the portable film at the left lung base. IMPRESSION: A 77-year-old male recently diagnosed with a localized pancreatic cancer, not a candidate for surgery based on his underlying medical condition. He is scheduled for SBRT for local control. He now presents with increasing confusion and somewhat lethargy with a question of infection. Decision was made to admit to the hospital and place on antibiotics. He will be given Lovenox for repeat DVT prophylaxis. He will be maintained on his usual medications. Repeat chest x-ray 2 views will be obtained to see if the infiltrate is real and we will also make sure that his neurologic status improves as he receives hydration, correction of his potassium and treatment for infection. [id number]/[facility] #: [id number] [facility]
--- NOTE | 2017-11-16 13:46 | DS ---
DISCHARGE SUMMARY: DATE OF ADMISSION: 10/10/17 DATE OF DISCHARGE: 10/11/17 REASON FOR ADMISSION: Increasing confusion in the setting of recently diagnosed pancreatic cancer. HISTORY OF PRESENT ILLNESS: Mr. Zarate is a 77-year-old male who was diagnosed in the last several months with a localized pancreatic cancer. He received an ERCP and a stent to correct a marked obstruction of the bile ducts and elevated LFTs. Bilirubin has returned to normal. He is scheduled for SBRT as he is not a surgical candidate. However, he has developed increasing confusion and at times lethargy, which was acute on the day prior to admission and brought to the emergency room. There was a question of infiltrate on his initial chest x- ray, so he was started on antibiotics. Repeat chest x-ray obtained later on the same date with a two view PA and lateral film did not reveal any evidence for pneumonia. Following institution of antibiotics, white count did improve down from 12.7 to 6.9. He received a potassium repletion; however, the potassium remained low during the short time he was in the hospital at 3.2. It was felt safe to discharge him to home after a long discussion with his with decision to keep him on antibiotics and to proceed with the SBRT in the near future. He was not felt to have any acute changes after that point. MEDICATIONS AT THE TIME OF DISCHARGE: Included: 1. Levofloxacin 500 mg daily. 2. Furosemide 40 mg daily. 3. Aspirin 81 mg daily. 4. Tamsulosin 0.4 mg daily. 5. Vitamin B complex. 6. Diphenhydramine 50 mg q.6 hours p.r.n. 7. Potassium chloride 20 mEq b.i.d. FOLLOW UP: The patient is asked to follow up in the office in several days' time to have repeat laboratory studies at that time and to continue to follow with Dr. Gibbs, Radiation Therapy, for his SBRT. DISCHARGE DIAGNOSES: 1. Increasing confusion, potentially secondary to mild infection. 2. Newly diagnosed pancreatic cancer. 3. Dementia. 4. Hypokalemia. [id number]/[facility] #: [id number] [facility]
== END 2017-10-11 12:10 | disposition home or self-care (01) ==
LOC: ED 10:47 → MED 16:34
PROVIDERS: ADMIT Internal Medicine Hematology & Oncology; ATTEND Internal Medicine Hematology & Oncology
DX: R41.0 Disorientation, unspecified (principal); C61 Malignant neoplasm of prostate; E87.6 Hypokalemia; Z87.891 Personal history of nicotine dependence; I25.10 Atherosclerotic heart disease of native coronary artery without angina pectoris; Z95.5 Presence of coronary angioplasty implant and graft; J44.9 Chronic obstructive pulmonary disease, unspecified; E11.9 Type 2 diabetes mellitus without complications; R63.4 Abnormal weight loss; I10 Essential (primary) hypertension; F03.90 Unspecified dementia, unspecified severity, without behavioral disturbance, psychotic disturbance, mood disturbance, and anxiety; Z90.89 Acquired absence of other organs; Z79.82 Long term (current) use of aspirin
CPT/HCPCS: 36415; 70450; 71045; 71046; 80048; 80053; 80307; 80329; 81003; 82140; 83605; 84443; 84484; 85025; 93005; 96365; 96366; 99217; 99220; 99223; 99238; 99284; A9270-GY; G0378; G0480; G8978-GP-CH; G8979-GP-CH; G8980-GP-CH; J0456; J0696; J1650

== ENCOUNTER 2018-11-05 15:30 | Emergency (ER) | payer MEDICARE ==
[2018-11-05 18:05] LABS: ABS Basophils 0.1 10^3/ul (0-0.2); ABS Lymphocytes 1.2 10^3/ul (1.0-4.8); ABS Monocytes 0.8 10^3/ul (0-0.8); ABS Neutrophils 7.4 10^3/ul (1.5-7.7); Eosinophil % 0.1 %; Hematocrit 37 % (42-52); Hemoglobin 12.4 g/dL (14.0-18.0); Lymphocyte % 12.6 %; Mean Corpuscular HGB Conc 33 g/dL (31-36); Mean Corpuscular Hemoglobin 33 pg (27-31); Mean Corpuscular Volume 99 fL (80-94); Mean Platelet Volume 8.7 fL (7.4-10.4); Platelet Count 155 10^3/uL (150-450); Red Blood Count 3.76 10^6 /uL (4.18-5.48); Red Cell Distribution Width 14 % (10.5-15); White Blood Count 9.6 10^3/uL (3.5-10.8)
[2018-11-05 18:22] LABS: Troponin I 0.01 ng/mL (<0.04)
[2018-11-05 18:34] LABS: ALT 12 U/L (7-52); AST 15 U/L (13-39); Albumin/Globulin Ratio 0.9 (1-3); Alkaline Phosphatase 126 U/L (34-104); Anion Gap 10 mmol/L (2-11); BUN/Creatinine Ratio 9.6 (8-20); Blood Urea Nitrogen 11 mg/dL (6-24); CO2 Carbon Dioxide 24 mmol/L (22-32); Calcium 9.1 mg/dL (8.6-10.3); Chloride 103 mmol/L (101-111); EGFR African American 74.8 (>60); EGFR Non-African American 61.8 (>60); Globulin 3.5 g/dL (2-4); Glucose 126 mg/dL (70-100); Potassium 3.7 mmol/L (3.5-5.0); Sodium 137 mmol/L (135-145); Total Protein 6.5 g/dL (6.4-8.9)
[2018-11-05 18:49] LABS: TSH (Thyroid Stimulating Horm) 4.76 mcIU/mL (0.34-5.60)
[2018-11-05 19:15] LABS: Urine Appearance Cloudy; Urine Bacteria Absent (Absent); Urine Bilirubin Negative (Negative); Urine Blood Negative (Negative); Urine Color Amber; Urine Glucose Negative (Negative); Urine Ketones Trace (Negative); Urine Nitrite Negative (Negative); Urine Protein 1+(30 mg/dL) (Negative); Urine Red Blood Cell Trace(0-2/hpf) (Absent); Urine Specific Gravity 1.025 (1.010-1.030); Urine Squamous Epithelial Cell Present (Absent); Urine Urobilinogen Negative (Negative); Urine White Blood Cell Trace(0-5/hpf) (Absent)
--- NOTE | 2018-11-06 00:38 | ED ---
Altered Mental Status - HPI Summary HPI Summary: Patient with history of dementia, complains of increasing confusion and disorientation with some hallucinations per family 1-1/2 days. Patient denies any complaints including fever, cough, sore throat, CP, SOB, N/V/V abdominal pain, change in urine, change in BM. Son states patient is unable to urinate. Medical history is chronic diarrhea, pancreatic cancer, a seen, COPD, DM 2, CAD , CHF. Patient DNR. 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 Teacher Hx From Patient Unobtainable Due To: Altered Mental Status Onset/Duration: Still Present Timing: Intermittent Severity Initially: Moderate Severity Currently: Moderate Character: Confusion, Agitation Aggravating Factor(s): Unknown Alleviating Factor(s): Unknown Associated Signs And Symptoms: Positive: Negative - Allergies/Home Medications Allergies/Adverse Reactions: Allergies Allergy/AdvReac Type Severity Reaction Status Date / Time Anesthetics - Delmy Type- Allergy DELIRIOUS Verified 11/05/18 16:03 Parabens tramadol AdvReac See Comment Verified 11/05/18 16:03 ANY MIND ALTERING MED Allergy DELIRIOUS Uncoded 09/01/17 11:22 PMH/Surg Hx/FS Hx/Imm Hx Endocrine/Hematology History: Reports: Hx Diabetes Cardiovascular History: Reports: Hx Angina, Hx Congestive Heart Failure, Hx Coronary Artery Disease - Coronary bypass grafting, Hx Hypertension, Other Cardiovascular Problems/Disorders - CARDIAC BYPASS [place] Denies: Hx Pacemaker/ICD Respiratory History: Reports: Hx Asthma, Hx Chronic Obstructive Pulmonary Disease (COPD) Comment Only: Other Respiratory Problems/Disorders - LIMITED HX DUE TO PT MEMORY GI History: Reports: Hx Gastroesophageal Reflux Disease, Hx Jaundice, Other GI Disorders - Dilated biliary tree and gallbladder, small pancreatic head mass History: Reports: Hx Benign Prostatic Hyperplasia, Other Problems/ Disorders - UTI at presentEnlarged prostate -on flomax Denies: Hx Renal Disease Musculoskeletal History: Reports: Hx Arthritis, Other Musculoskeletal History - back pain Sensory History: Reports: Hx Cataracts - HAD SURGERY, Hx Deafness, Hx Hearing Problem - Very [place] Denies: Hx Contacts or Glasses, Hx Hearing Aid - pt refuses - HARD OF HEARING Opthamlomology History: Reports: Hx Cataracts - HAD SURGERY Denies: Hx Contacts or Glasses Neurological History: Reports: Hx Dementia, Other Neuro Impairments/Disorders - Delerium following hip replacement Psychiatric History: Reports: Hx Depression - Per pts Denies: Hx Panic Disorder - Cancer History Cancer Type, Location and Year: 08/25/17 - [facility] DX PANCREATIC CANCER - TREATMENT PLANNING Hx Chemotherapy: No Hx Radiation Therapy: No - Surgical History Surgery Procedure, Year, and Place: 08/25/17 ERCP W/ STENT. APPENDECTOMY. CARDIAC BYPASS - PER NO TEMP PACER. Rt TOTAL HIP REPLACEMENT Hx Anesthesia Reactions: No - Combative delruim follow hip replacement Infectious Disease History: No Infectious Disease History: Denies: Traveled Outside the [place] in Last 30 Days - Family History Known Family History: Positive: Respiratory Disease - Mother had emphysema. , Other - Father had cancer. Negative: Cardiac Disease Family History: No FHx anesthesia reaction - Social History Alcohol Use: None Hx Substance Use: No Substance Use Type: Reports: None Hx Tobacco Use: Yes Smoking Status (MU): Former Smoker Have You Smoked in the Last Year: No Review of Systems Constitutional: Negative Eyes: Negative ENT: Negative Cardiovascular: Negative Respiratory: Negative Gastrointestinal: Negative Genitourinary: Negative Musculoskeletal: Negative Skin: Negative Neurological: Negative Psychological: Normal All Other Systems Reviewed And Are Negative: Yes Physical Exam - Summary Physical Exam Summary: Patient alert and oriented, responds coherently to most history of present illness questions. Physical exam unremarkable. Lungs clear to auscultation bilaterally. RRR. Abdomen soft nontender. No peripheral edema. No facial droop or slurred speech. Neuro exam normal. Triage Information Reviewed: Yes Vital Signs On Initial Exam: Initial Vitals Temp Pulse Resp BP Pulse Ox 98.2 F 85 16 111/78 94 11/05/18 15:56 11/05/18 15:56 11/05/18 15:56 11/05/18 15:56 11/05/18 15:56 Vital Signs Reviewed: Yes Appearance: Positive: Well-Appearing Skin: Positive: Warm Head/Face: Positive: Normal Head/Face Inspection Eyes: Positive: Normal ENT: Positive: Normal ENT inspection Neck: Positive: Supple Respiratory/Lung Sounds: Positive: Clear to Auscultation Cardiovascular: Positive: Normal Abdomen Description: Positive: Nontender Musculoskeletal: Positive: Normal Neurological: Positive: Normal Psychiatric: Positive: Normal AVPU Assessment: Alert - Jose Coma Scale Best Eye Response: 4 - Spontaneous Best Motor Response: 6 - Obeys Commands Best Verbal Response: 5 - Oriented Coma Scale Total: 15 Diagnostics - Vital Signs Vital Signs Temp Pulse Resp BP Pulse Ox 11/05/18 23:00 18 11/05/18 22:00 14 11/05/18 21:00 19 11/05/18 20:38 19 113/69 11/05/18 20:07 75 22 123/77 97 11/05/18 20:00 80 15 96 11/05/18 19:07 19 129/91 11/05/18 19:00 19 11/05/18 18:37 78 21 130/92 99 11/05/18 18:07 19 138/95 11/05/18 18:00 74 16 100 11/05/18 17:38 67 99 11/05/18 17:37 69 172/95 100 11/05/18 15:56 98.2 F 85 16 111/78 94 - Laboratory Lab Results: Lab Results 11/05/18 11/05/18 11/05/18 Range/Units 17:16 17:16 17:16 WBC 9.6 (3.5-10.8) 10^3/uL RBC 3.76 L (4.18-5.48) 10^6 /uL Hgb 12.4 L (14.0-18.0) g/dL Hct 37 L (42-52) % MCV 99 H (80-94) fL MCH 33 H (27-31) pg MCHC 33 (31-36) g/dL RDW 14 (10.5-15) % Plt Count 155 (150-450) 10^3/uL MPV 8.7 (7.4-10.4) fL Neut % (Auto) 77.5 % Lymph % (Auto) 12.6 % Kane % (Auto) 8.8 % Eos % (Auto) 0.1 % Baso % (Auto) 1.0 % Absolute Neuts (auto) 7.4 (1.5-7.7) 10^3/ul Absolute Lymphs (auto) 1.2 (1.0-4.8) 10^3/ul Absolute Monos (auto) 0.8 (0-0.8) 10^3/ul Absolute Eos (auto) 0.0 (0-0.6) 10^3/ul Absolute Basos (auto) 0.1 (0-0.2) 10^3/ul Absolute Nucleated RBC 0.0 10^3/ul Nucleated RBC % 0.0 Sodium 137 (135-145) mmol/L Potassium 3.7 (3.5-5.0) mmol/L Chloride 103 (101-111) mmol/L Carbon Dioxide 24 (22-32) mmol/L Anion Gap 10 (2-11) mmol/L BUN 11 (6-24) mg/dL Creatinine 1.15 (0.67-1.17) mg/dL Est GFR ( Amer) 74.8 (>60) Est GFR (Non-Af Amer) 61.8 (>60) BUN/Creatinine Ratio 9.6 (8-20) Glucose 126 H (70-100) mg/dL Lactic Acid 1.2 (0.5-2.0) mmol/L Calcium 9.1 (8.6-10.3) mg/dL Magnesium 2.0 (1.9-2.7) mg/dL Total Bilirubin 0.80 (0.2-1.0) mg/dL AST 15 (13-39) U/L ALT 12 (7-52) U/L Alkaline Phosphatase 126 H (34-104) U/L Troponin I 0.01 (<0.04) ng/mL Total Protein 6.5 (6.4-8.9) g/dL Albumin 3.0 L (3.2-5.2) g/dL Globulin 3.5 (2-4) g/dL Albumin/Globulin Ratio 0.9 L (1-3) Lipase < 10 L (11.0-82.0) U/L TSH 4.76 (0.34-5.60) mcIU/mL Urine Color Urine Appearance Urine pH (5-9) Ur Specific [place] (1.010-1.030) Urine Protein (Negative) Urine Ketones (Negative) Urine Blood (Negative) Urine Nitrate (Negative) Urine Bilirubin (Negative) Urine Urobilinogen (Negative) Ur Leukocyte Esterase (Negative) Urine WBC (Auto) (Absent) Urine RBC (Auto) (Absent) Ur Squamous Epith Cells (Absent) Urine Bacteria (Absent) Hyaline Casts (Absent) Urine Sperm (Absent) Urine Glucose (Negative) Urine Ascorbic Acid (Negative) 11/05/18 Range/Units 18:56 WBC (3.5-10.8) 10^3/uL RBC (4.18-5.48) 10^6 /uL Hgb (14.0-18.0) g/dL Hct (42-52) % MCV (80-94) fL MCH (27-31) pg MCHC (31-36) g/dL RDW (10.5-15) % Plt Count (150-450) 10^3/uL MPV (7.4-10.4) fL Neut % (Auto) % Lymph % (Auto) % Kane % (Auto) % Eos % (Auto) % Baso % (Auto) % Absolute Neuts (auto) (1.5-7.7) 10^3/ul Absolute Lymphs (auto) (1.0-4.8) 10^3/ul Absolute Monos (auto) (0-0.8) 10^3/ul Absolute Eos (auto) (0-0.6) 10^3/ul Absolute Basos (auto) (0-0.2) 10^3/ul Absolute Nucleated RBC 10^3/ul Nucleated RBC % Sodium (135-145) mmol/L Potassium (3.5-5.0) mmol/L Chloride (101-111) mmol/L Carbon Dioxide (22-32) mmol/L Anion Gap (2-11) mmol/L BUN (6-24) mg/dL Creatinine (0.67-1.17) mg/dL Est GFR ( Amer) (>60) Est GFR (Non-Af Amer) (>60) BUN/Creatinine Ratio (8-20) Glucose (70-100) mg/dL Lactic Acid (0.5-2.0) mmol/L Calcium (8.6-10.3) mg/dL Magnesium (1.9-2.7) mg/dL Total Bilirubin (0.2-1.0) mg/dL AST (13-39) U/L ALT (7-52) U/L Alkaline Phosphatase (34-104) U/L Troponin I (<0.04) ng/mL Total Protein (6.4-8.9) g/dL Albumin (3.2-5.2) g/dL Globulin (2-4) g/dL Albumin/Globulin Ratio (1-3) Lipase (11.0-82.0) U/L TSH (0.34-5.60) mcIU/mL Urine Color [place] Urine Appearance Cloudy Urine pH 6.0 (5-9) Ur Specific [place] 1.025 (1.010-1.030) Urine Protein 1+(30 mg/dl) A (Negative) Urine Ketones Trace A (Negative) Urine Blood Negative (Negative) Urine Nitrate Negative (Negative) Urine Bilirubin Negative (Negative) Urine Urobilinogen Negative (Negative) Ur Leukocyte Esterase Negative (Negative) Urine WBC (Auto) Trace(0-5/hpf) (Absent) Urine RBC (Auto) Trace(0-2/hpf) (Absent) Ur Squamous Epith Cells Present A (Absent) Urine Bacteria Absent (Absent) Hyaline Casts Present A (Absent) Urine Sperm Present A (Absent) Urine Glucose Negative (Negative) Urine Ascorbic Acid * A (Negative) Result Diagrams: 11/05/18 17:16 11/05/18 17:16 Lab Statement: Any lab studies that have been ordered have been reviewed, and results considered in the medical decision making process. Altered Mental Statu Course/Dx - Course Course Of Treatment: Patient with history of dementia, complains of increasing confusion and disorientation with some hallucinations per family 1-1/2 days. Patient denies any complaints including fever, cough, sore throat, CP, SOB, N/V/ V abdominal pain, change in urine, change in BM. Son states patient is unable to urinate. Medical history is chronic diarrhea, pancreatic cancer, a seen, COPD, DM 2, CAD, CHF. Patient DNR. Physical exam:Patient alert and oriented, responds coherently to most history of present illness questions. Physical exam unremarkable. Lungs clear to auscultation bilaterally. RRR. Abdomen soft nontender. No peripheral edema. No facial droop or slurred speech. Neuro exam normal. Vital signs within normal limits. Labs with patient baseline. Brain CT negative for acute process. EKG sinus rhythm. Ultrasound gallbladder negative. Ultrasound gallbladder requested due to gallbladder findings on recent CT scan. garbo. bladder scan - Diagnoses Provider Diagnoses: Altered mental status Discharge - Sign-Out/Discharge Documenting (check all that apply): Patient Departure Patient Received Moderate/Deep Sedation with Procedure: No - Discharge Plan Condition: Stable Disposition: HOME Patient Education Materials: Dementia (ED) Referrals: Dino Wilcox MD [Primary Care Provider] - Additional Instructions: Follow-up with Dr. Wilcox. Return to the ED for any new or worsening symptoms. - Billing Disposition and Condition Condition: STABLE Disposition: Home
[2018-11-06 00:55] VITALS: BP 121/79
== END 2018-11-06 00:48 | disposition home or self-care (01) ==
LOC: ED 15:30
DX: R41.82 Altered mental status, unspecified (principal); N28.1 Cyst of kidney, acquired; K76.89 Other specified diseases of liver; R94.31 Abnormal electrocardiogram [ECG] [EKG]; F03.90 Unspecified dementia, unspecified severity, without behavioral disturbance, psychotic disturbance, mood disturbance, and anxiety; F05 Delirium due to known physiological condition; I11.0 Hypertensive heart disease with heart failure; I50.9 Heart failure, unspecified; I25.10 Atherosclerotic heart disease of native coronary artery without angina pectoris; E11.9 Type 2 diabetes mellitus without complications; J44.9 Chronic obstructive pulmonary disease, unspecified; K21.9 Gastro-esophageal reflux disease without esophagitis; F32.9 Major depressive disorder, single episode, unspecified; Z95.1 Presence of aortocoronary bypass graft; Z85.07 Personal history of malignant neoplasm of pancreas; Z66 Do not resuscitate; Z88.6 Allergy status to analgesic agent; Z88.8 Allergy status to other drugs, medicaments and biological substances; Z87.891 Personal history of nicotine dependence; K82.8 Other specified diseases of gallbladder
CPT/HCPCS: 36415; 70450; 76705; 80053; 81003; 81015; 83605; 83690; 83735; 84443; 84484; 85025; 87086; 93005; 99283